=== PATIENT | female | born 1940 | race Caucasian/White ===

== ENCOUNTER 2022-02-25 13:16 | Outpatient (CLI) | payer MEDICARE, SELFPAY ==
--- NOTE | 2022-02-25 13:40 | CRLHL7_ITS ---
For Patients: As a result of the Century Cures Act, medical imaging exams and procedure reports are released immediately into your electronic medical record. You may view this report before your referring provider. If you have questions, please contact your health care provider. BILATERAL SCREENING MAMMOGRAM WITH COMPUTER-AIDED DETECTION TECHNIQUE: CC and MLO views were obtained. These mammographic images have been obtained using full-field digital technique. These mammographic images were interpreted with the benefit of computer-aided detection. COMPARISON FILM: 04/21/20, 04/20/19, 03/31/18. FINDINGS: There are scattered areas of fibroglandular density IMPRESSION: There is no radiographic evidence for malignancy. ASSESSMENT: BI-RADS Category 1: Negative RECOMMENDATION: Routine screening mammogram in 1 year. A lay language report of this examination will be provided to the patient. Niranjan Lanza M.D. Diagnostic Radiologist [email or web address] MEDARDO/Dictated by: Niranjan Lanza MD @ 02/26/2022 8:10:00 AM (Electronically Signed)
== END 2022-02-25 13:17 | disposition home or self-care (01) ==
LOC: MAMMO 13:21
PROVIDERS: PCP Family Medicine; Visit Provider Family Medicine
DX: Z12.31 Encounter for screening mammogram for malignant neoplasm of breast (principal)
CPT/HCPCS: 77067

== ENCOUNTER 2022-04-14 08:41 | Outpatient (CLI) | payer MEDICARE, SELFPAY ==
[2022-04-14 14:49] LABS: Chloride* 96 mmol/L (96-114); Potassium* 4.1 mmol/L (3.6-5.1); Sodium* 136 mmol/L (135-149)
[2022-04-14 14:52] LABS: Blood Urea Nitrogen* 12 mg/dL (7-30); Carbon Dioxide* 32 mmol/L (20-32); Cholesterol* 174 mg/dL (90-199); Creatinine* 0.6 mg/dL (0.5-1.5); Estimated Glomerular Filt Rate 91 ml/min; Glucose* 87 mg/dL (60-115); Triglycerides* 159 mg/dL (40-149)
[2022-04-14 14:53] LABS: HDL Cholesterol* 65 mg/dL (>=50); LDL Cholesterol Calculated 77 mg/dL (<100)
[2022-04-14 15:08] LABS: Calcium* 9.1 mg/dL (8.4-10.6)
[2022-04-14 15:39] LABS: Free T4 Free Thyroxine* 0.89 ng/dL (0.70-1.85)
== END 2022-04-14 08:42 | disposition home or self-care (01) ==
PROVIDERS: PCP Family Medicine; Visit Provider Family Medicine
DX: E78.5 Hyperlipidemia, unspecified (principal); I10 Essential (primary) hypertension; Z13.29 Encounter for screening for other suspected endocrine disorder
CPT/HCPCS: 80048; 80061; 84439; 84443

== ENCOUNTER 2023-01-04 11:09 | Outpatient (CLI) | payer MEDICARE, SELFPAY | END 2023-01-04 11:10 | disposition home or self-care (01) | LOC: LONREF 11:10 | PROVIDERS: PCP Family Medicine; Visit Provider Family Medicine | DX: Z01.818 Encounter for other preprocedural examination (principal); I10 Essential (primary) hypertension; E78.00 Pure hypercholesterolemia, unspecified | CPT/HCPCS: 80048 ==

== ENCOUNTER 2023-01-24 07:07 | Day surgery (SDC) | payer MEDICARE, SELFPAY ==
[2023-01-24] VITALS (23 sets, daily range): BP systolic 108–167; BP diastolic 58–103; PULSE 59–96; RESP 12–18; TEMP 35.6–36.6; O2SAT 90–99; BMI 35.7
--- OUTSIDE RECORDS SUMMARY | 2023-01-24 07:09 | XMS_ITS | Continuity of Care Document ---
Author Name Unknown Organization [facility] Address [address] [place] [address] Phone Care Team Providers Care Gum Cook Name Role Phone Joseph Montejo MD Unavailable Unavailable Medications Medication Instructions Dosage Effective Dates (start - stop) Status Comments GABAPENTIN (unknown strength) Not Available - Active HYDROCHLOROTHIAZIDE (unknown strength) Not Available - Active LISINOPRIL (unknown strength) Not Available - Active POTASSIUM CHLORIDE (unknown strength) Not Available - Active PRAVASTATIN SODIUM (unknown strength) Not Available - Active CITALOPRAM HBR (unknown strength) Not Available - Active STANBACK ANALGESIC (unknown strength) Not Available - Active INFANTS IBUPROFEN (unknown strength) Not Available - Active Procedures Procedure Date Postop Followup Visit Remove Intraspinal Lesion, Lumbar Pa Assist Remove Intraspinal Lesion, Lum bar Office/Outpatient Visit,Est, Mod 2012 Office/Outpatient Visit,Est, Mod 2012 Office/Outpatient Visit,New, Mod 2011 X-Ray Exam Of Neck Spine, 4+ Views Advance Directives Directive Yes / No Effective Date File Name No Information Encounters Encounter Description Practice Location Reason(s) For Visit Diagnoses Date Provider Providers Copied on Encounter [facility], [address], [place], [place], [id number], [place] tel:[phone] [facility] No Information 6 Gustabo Ruiz. [facility], [address], [place], [id number] , [place]. tel:[phone] Z [facility], [address], [place], [address], [place] tel:[phone] [facility] No Information 3 Stone Rutherford. [facility], [address], [place], [place], [id number] , [place]. tel: [phone] Referring Provider: Augustus Stahl, [facility] [address], [place], [address]. tel:[phone] Z [facility], [address], [place], [address], [place] tel:[phone] [place] [address] No Information 3 Gustabo Ruiz. [facility], [address] [place] [address] [address], [place], [place], [id number] , [place]. tel: [phone] Referring Provider: Augustus Stahl, [facility] [address], [place], [address]. tel:[phone] Office/Outpat ient Visit,Est, Mod Z [facility], [address], [place], [address], [place] tel:[phone] [facility] Piper LUMBAGO Feb-0 3 Gustabo Ruiz. [facility], [address], [place], [place], [id number] , [place]. tel:[phone] Referring Provider: Augustus Stahl, [facility] [address], [place], [address]. tel:[phone] Office/Outpat ient Visit,Est, Mod Z [facility], [address], [place], [address], [place] tel:[phone] [place] [address] No Information 3 Stone [place]. [facility], [address], [place], [place], [address] , [place]. tel:[phone] Referring Provider: Augustus Stahl, [facility] [address], [place], [address]. tel:[phone] Z [facility], [address], [place], [address], [place] tel:[phone] [facility] No Information 2 Gustabo Ruiz. [facility], [address], [place], [place], [id number] , [place]. [phone] Office/Outpat ient Visit,[facility], [facility] Z [facility], [address], [place], [place], [facility], [place] tel:[phone] [facility] No Information 2 Stone [place]. [facility], [address] [place] [address] [address], [place], [place], [address] , [place]. tel:[phone] Referring Provider: Augustus Stahl, [facility] [address] [place], [address]. tel:[phone] Family History Family Member Type Diagnosis Age At Onset Problem (finding) Family history of Heart disease Problem (finding) Family history of osteo arthritis Problem (finding) Family history of hyper tension Payers Payer name Insurance type Covered green party ID Authoriza tion(s) No Information Social History Type Description Quantity Date Captured Comments Sex Female Smoking Status No Information Chief Complaint And Reason For Visit No Information Reason For Referral Reason For Referral No Information History Of Present Illness Encounter Date Complaint History Of Prese nt Illness No Information Functional Status Date Functional Assessmen t No Information Instructions Date Instruction Additional Infor mation No Information Assessments Type Assessment Date No Information Patient Care Teams Name Effective Dates (start - stop) Status Members No Information
[2023-01-24] MEDS: OXYCODONE (CR) 10 MG TAB.ER.12H PO (07:21)
[2023-01-24] MEDS: CELECOXIB 200 MG CAPSULE PO ×2 (07:21→20:56)
[2023-01-24] MEDS: ACETAMINOPHEN 500 MG TABLET 1000 MG PO ×3 (07:21→19:43)
[2023-01-24] MEDS: LACTATED RINGERS 1000 ML 1,000 ML 100 ML IV (07:25)
[2023-01-24] MEDS: SODIUM CHLORIDE 0.9 % (FLUSH) 10 ML SYRINGE IVF (07:40)
--- NOTE | 2023-01-24 08:02 | W.PM.H&PU ---
History & Physical Update History & Physical Update H&P Reviewed and patient assessed: No changes noted
--- NOTE | 2023-01-24 08:04 | CRLHL7_ITS ---
For Patients: As a result of the Cures Act, medical imaging exams and procedure reports are released immediately into your electronic medical record. You may view this report before your referring provider. If you have questions, please contact your health care provider. INDICATION: Left knee arthroplasty. Follow-up. TECHNIQUE: Two views of the left knee performed portably and postoperatively. COMPARISON: Pre-surgical images November 16, 2022. FINDINGS: New left total knee arthroplasty with patellar resurfacing. The components are adequately aligned and well seated. Air within the soft tissues and joint space related to the surgery. Soft tissue swelling. IMPRESSION: Postsurgical change from a left total knee arthroplasty. The components are adequately aligned and well seated. Dictated by Brock Barone MD @ 01/24/2023 11:35:28 AM (Electronically Signed)
[2023-01-24] MEDS: fentaNYL 100 MCG/2 ML inj IVP (08:09)
[2023-01-24] MEDS: MIDAZOLAM HCL 1 MG/ML inj IVP (08:09)
--- NOTE | 2023-01-24 08:17 | SUR.PREOP ---
TIME?OUT:?0808 PT/RN/MDA?VERIFICATION?OF?SURGICAL?SITE Left Knee,?PROCEDURE Adductor Canal Block,?AND?CONSENT OBTAINED?PRIOR?TO?INVASIVE?PROCEDURE.
[2023-01-24] MEDS: TRANEXAMIC ACID 100 MG/ML INJ 1000 MG IV (09:00)
[2023-01-24] MEDS: CEFAZOLIN 2 GM in 0.9 % SODIUM CHLORIDE Mini-bag 100 ML IVPB ×3 (09:10→22:46)
--- NOTE | 2023-01-24 10:25 | P.ORPRC_ITS ---
Procedure Note Date of procedure: 01/24/23 Procedure: PREOPERATIVE DIAGNOSIS: 1. Left knee osteoarthritis, primary, severe POSTOPERATIVE DIAGNOSIS: 1. Left knee osteoarthritis, primary, severe PROCEDURE: 1. Left total knee arthroplasty SURGEON: Daniele Diaz MD. FINISHED YARN EXAMINER: Izzy Quarles Pa-c - Of note, a skilled assisted living assistant was critical for this case to aid in patient positioning, tissue retraction, limb manipulation/positioning, and closure. ANESTHESIA: Spinal anesthetic EBL: 50ml IMPLANTS: DePuy J&J all cemented TKA - Attune PS femur size 5 narrow, size 4 tibia, 5 poly spacer, 35 mm patella TOURNIQUET: 85 minutes at 300 torr COMPLICATIONS: None evident INDICATIONS: The patient is a pleasant 82-year-old female who has experienced severe left knee pain and difficulty bearing weight. Workup included x-rays which revealed severe osteoarthrosis in the knee. Given the deformity, the dysfunction, and the pain, as well as the failure of nonoperative management, recommendation was made for surgery. FINDINGS: Full-thickness chondral loss broadly throughout the patellofemoral compartment and lateral compartment. Tremendous lateral degenerative meniscus pathology. Moderate effusion upon entering the joint. Valgus knee posture. DESCRIPTION OF PROCEDURE: Following a thorough discussion of risks, benefits, and alternatives consent was obtained and the left knee was marked. The patient was brought to the operating room and placed supine on the operating table. Induction of anesthesia was undertaken. 2 g IV Ancef and 1 g tranexamic acid was administered within 1 hr of incision preoperatively. Proper time-out was performed identifying proper patient, site, procedure. The operative extremity was prepped and draped in the appropriate sterile fashion using ChloraPrep after the patient was positioned supine with all bony prominences well padded. A longitudinal, anterior, midline skin incision was made starting approximately 3cm proximal to the superior pole of the patella and advanced distal to the tibial tubercle. A median parapatellar arthrotomy was created. A medial subperiosteal sleeve was created with knife, massey elevator and curved osteotome. The retropatellar fatpad was resected and the synovium in the suprapatellar pouch excised to visualize the anterior femoral cortex. Femoral preparation was performed via an intramedullary guide. Step drill allowed access into the femoral canal. The distal cutting guide was placed with 5? of valgus and 11 mm cut on the distal femur. Femur was sized using a posterior referencing guide but also trans epicondylar axis and Whitesides line in 5 ? of external rotation. This found have a best fit with the sizing noted above. The 4 in 1 cutting block was then placed, and the distal femur shaped accordingly. The box cut was then created and the trial implant inserted to confirm appropriate fit. We turned our attention to the proximal tibia. Extramedullary guide was utilized for cutting with the goal of being 90 degree cut from the mechanical axis of the tibia in the varus/valgus plane utilizing tibial crest as the primary alignment. Initially a 4 mm resection was performed from the medial tibial plateau. Ultimately, balancing was achieved in both flexion and extension in both varus and valgus. The knee was able to achieve full extension as well comfortably. The patella was initially measured and found have a thickness of 20 mm. It was resected back to approximately 14 mm. It was sized to be a best fit with as noted above. This was drilled, trial placed. All trials were placed and found to have an excellent stability and balance. At this stage, trial implants were removed, the knee was thoroughly irrigated with normal saline, and the cement was mixed. After irrigation, the knee was thoroughly dried, and cement placed, with the real tibial and femoral implants placed along with the patella. Trial poly spacer was placed and confirmed to have excellent range of motion and full extension, and the real poly spacer op ened and inserted. All extra cement was removed, and a 3 min Betadine soak performed. Finally, a final irrigation round with normal saline was performed. Closure performed with 0 PDS and #0 Stratafix for the quad tendon/retinaculum. 2-0 Vicryl/Stratafix for the subcutaneous and 4-0 Monocryl for subcuticular closure. Dressings were applied and the patient was awoken from anesthesia after the tourniquet deflated and transferred the PACU in stable condition. A skilled assisted living assistant was critical for this case to aid in patient positioning, tissue retraction, bone exposure, limb manipulation/positioning, patient safety, and closure. PLAN: 1. Weight bear as tolerated operative extremity. 2. 23 hr perioperative antibiotics. 3. Ice. 4. PT/OT consults for ambulation assistance/mobility education. 5. Social work consult for discharge planning. 6. DVT prophylaxis with at SCDs, Marlo Hose, and aspirin twice daily.
--- NOTE | 2023-01-24 11:01 | P.NB_ITS ---
Nerve Block Nerve Block Time Seen by Provider: 08:12 Date Seen: 01/24/23 Type of block requested by surgeon for post-operative analgesia: adductor canal Side: left Time out performed: Yes Verification of patient name: Yes Verification of date of : Yes Site marking: site marked Name of person performing procedure: Wesley Continuous monitoring Was continuous monitoring of O2 sat, B/P, quality assurance monitor chassis, recorded every 15 minutes?: Yes Procedure Checklist: sterile prep, needles and gloves Ultrasound guided. Images saved: Yes Medications given in 5ml increments after negative aspiration: Ropivicaine %: 0.5 mL: 20 Needle gauge: 20 Decadron (mg): 10 Precedex (mcg): 25 Patient tolerated procedure well: Yes Additional comments: Needle noted adjacent to nerve Block Charges Block Charge (with Pro Fee): Femoral Nerve Use of Ultrasound Machine for Block: Yes- US Guidance/pain block
--- NOTE | 2023-01-24 11:02 | P.NB_ITS ---
Nerve Block Nerve Block Time Seen by Provider: 08:12 Date Seen: 01/24/23 Type of block requested by surgeon for post-operative analgesia: geniculars Side: left Time out performed: Yes Verification of patient name: Yes Verification of date of : Yes Site marking: site marked Name of person performing procedure: Wesley Continuous monitoring Was continuous monitoring of O2 sat, B/P, security monitor, recorded every 15 minutes?: Yes Procedure Checklist: sterile prep, needles and gloves Medications given in 5ml increments after negative aspiration: Ropivicaine %: 0.5 mL: 9 Needle gauge: 25 Patient tolerated procedure well: Yes Block Charges Block Charge (with Pro Fee): Genicular Nerve Block Use of Ultrasound Machine for Block: No
--- NOTE | 2023-01-24 11:02 | W.ANESCHARGE ---
Anesthesia Charges Start Date/Time Anesthesia Start Date: 01/24/23 Anesthesia Start Time: 08:52 Stop Date/Time Anesthesia Stop Date: 01/24/23 Anesthesia Stop Time: 11:00
--- NOTE | 2023-01-24 11:02 | W.ANESCHARGE ---
Anesthesia Charges Start Date/Time Anesthesia Start Date: 01/24/23 Anesthesia Start Time: 08:52 Stop Date/Time Anesthesia Stop Date: 01/24/23 Anesthesia Stop Time: 11:00 Summary Extremes of Age - Over 70 or under 1: MDA
[2023-01-24] MEDS: HYDROmorphone 0.5 mg/0.5 ml inj IVP (12:59)
[2023-01-24] MEDS: LACTATED RINGERS 1000 ML 1,000 ML 75 ML IV (13:03)
--- NOTE | 2023-01-24 15:23 | PM.IMCN1 ---
Date of Consult Patient: [facility] Patient Consult date: 01/24/23 Requesting Physician: Orthopedics Primary Care Provider: Julio Gonzales MD Consult Narrative Reason for consult: Medical management Narrative: Jeri Rojas is a 82 year old female seen following left knee arthroplasty for management of medical problems. Consultation requested by Dr. Diaz. Patient reports at this time she is doing well. She is not having significant pain. No nausea, dyspnea or chills. Preoperatively she reports she was doing well. No recent illness. She is bothered by chronic sinus congestion. She has not had any fever. No cough or dyspnea. Preop physical done 3 weeks ago identified no new problems. She was switch from lisinopril to amlodipine for her hypertension that time. Previous surgeries performed without problems with anesthesia, bleeding or clotting. She did have a left hip arthroplasty with an uncomplicated postoperative course and managed well at home. Review of Systems Narrative: Unremarkable except as noted above PFSH PFS Medical History (Updated 01/24/23 @ 15:32 by Stone Huerta MD) Osteoarthritis of left knee ?M17.12 - Unilateral primary osteoarthritis, left knee (ICD-10) Hypothyroid ?E03.9 - Hypothyroidism, unspecified (ICD-10) Anxiety (03/02/11) ?F41.9 - Anxiety disorder, unspecified (ICD-10) Hypertension ?I10 - Essential (primary) hypertension (ICD-10) Hyperlipidemia ?E78.5 - Hyperlipidemia, unspecified (ICD-10) Surgical History (Updated 01/24/23 @ 15:27 by Stone Huerta MD) History of vein stripping ?Z98.890 - Other specified postprocedural states (ICD-10) Status post tubal ligation (02/11/09) ?Z98.51 - Tubal ligation status (ICD-10) Status post lumbar spine operative procedure for decompression of spinal cord ?Z98.890 - Other specified postprocedural states (ICD-10) Status post left foot surgery (02/11/09) ?Z98.890 - Other specified postprocedural states (ICD-10) Status post cataract extraction ?Z98.49 - Cataract extraction status, unspecified eye (ICD-10) Status post bunionectomy (02/11/09) ?Z98.890 - Other specified postprocedural states (ICD-10) 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 She has 2 steps to get into the house but then lives on 1 level. They have installed hand rails on both sides to get into the house. She does not smoke. She rarely drinks alcohol. What is your current living situation?: I presently have a place to live In the past 12 months, utilities in danger of being shut off: no In the past 12 mos, have been you worried that your food would run out before you had money to buy more?: never true In the past 12 mos, the food you bought just didn't last and you didn't have money to buy more?: never true Smoking Status: Never smoker Do you use any of these nicotine containing products: None How often do you have a drink containing alcohol: never How many standard drinks containing alcohol do you have on a typical day: 1 or 2 How often do you have six or more drinks on one occasion: Never AUDIT-C Alcohol total score: 0 Non-prescribed substance use: denies use Caffeine: Yes How often does anyone, including family, friends and others, physically hurt you: never How often does anyone, including family, friends and others, insult or talk down to you: never How often does anyone, including family, friends and others, threaten you with harm: never How often does anyone, including family, friends and others, scream or curse at you: never Meds Home Medications and Allergies Home Medications Medication Instructions Recorded Confirmed Type multivitamin 1 tab PO HS 04/14/22 01/24/23 History amlodipine 5 mg tablet 5 mg PO HS 01/24/23 01/24/23 History citalopram 20 mg tablet 20 mg PO HS 01/24/23 01/24/23 History mirabegron 25 mg tablet,extended 25 mg PO HS 01/24/23 01/24/23 History release 24 hr (Myrbetriq) pravastatin 40 mg tablet 40 mg PO HS 01/24/23 01/24/23 History Allergies Allergy/AdvReac Type Severity Reaction Status Date / Time lisinopril AdvReac Intermediate lip Verified 01/24/23 07:36 swelling Exam Narrative: Exam Narrative: She is alert and appears in no distress. Mood and affect are bright. Oropharynx with small airway. Neck is supple without mass or adenopathy. Respirations are clear to auscultation. Breathing is unlabored. Cardiovascular: S1, S2, regular rate and rhythm. No murmur gallop or rub. Abdomen: Bowel sounds active. Abdomen is soft without tenderness or mass. Lower extremities with bandage on left knee. Distal to that there is no edema. She has intact strength, pulses and sensation in both ankles and feet. Const: Vital Signs, click to edit/add: Vital Signs - 24 hr 01/24/23 07:41 01/24/23 08:08 01/24/23 08:13 Temperature 97.9 F Pulse Rate 65 67 61 Pulse Rate [Pulse Oximeter] Respiratory Rate 16 16 16 Blood Pressure 152/88 H 167/103 H 136/84 Blood Pressure [Ri ght Arm] Pulse Oximetry 96 99 99 Oxygen Delivery Me thod Room Air Nasal Cannula Nasal Cannula Oxygen Flow Rate 2 2 01/24/23 08:19 01/24/23 10:56 01/24/23 11:00 Temperature 96.8 F L Pulse Rate 59 L 65 64 Pulse Rate [Pulse Oximeter] Respiratory Rate 16 16 16 Blood Pressure 131/81 109/73 116/77 Blood Pressure [Ri ght Arm] Pulse Oximetry 99 97 99 Oxygen Delivery Me thod Nasal Cannula OxyMask OxyMask Oxygen Flow Rate 2 10 10 01/24/23 11:05 01/24/23 11:10 01/24/23 11:15 Temperature 96.8 F L Pulse Rate 60 61 60 Pulse Rate [Pulse Oximeter] Respiratory Rate 16 16 12 Blood Pressure 126/82 129/82 132/82 Blood Pressure [Ri ght Arm] Pulse Oximetry 99 99 97 Oxygen Delivery Me thod OxyMask OxyMask Room Air Oxygen Flow Rate 5 5 01/24/23 11:20 01/24/23 11:25 01/24/23 11:28 Temperature 97 F L Pulse Rate 62 60 65 Pulse Rate [Pulse Oximeter] Respiratory Rate 12 16 16 Blood Pressure 128/81 126/81 136/78 Blood Pressure [Ri ght Arm] Pulse Oximetry 94 94 96 Oxygen Delivery Me thod Room Air Room Air Room Air Oxygen Flow Rate 01/24/23 11:45 01/24/23 12:00 01/24/23 12:15 Temperature 96.0 F L 96.0 F L 96.0 F L Pulse Rate Pulse Rate [Pulse Oximeter] 67 65 66 Respiratory Rate 14 14 14 Blood Pressure Blood Pressure [Ri ght Arm] 137/79 133/61 127/58 L Pulse Oximetry 91 95 Oxygen Delivery Me thod Room Air Nasal Cannula Nasal Cannula Oxygen Flow Rate 1 1 01/24/23 12:29 01/24/23 12:30 01/24/23 13:00 Temperature 96.0 F L 96.3 F L 96.3 F L Pulse Rate 65 Pulse Rate [Pulse Oximeter] 63 69 Respiratory Rate 14 14 14 Blood Pressure Blood Pressure [Ri ght Arm] 136/75 125/78 123/70 Pulse Oximetry 95 90 Oxygen Delivery Me thod Room Air Nasal Cannula Nasal Cannula Oxygen Flow Rate 1 1 01/24/23 14:59 Temperature 96.3 F L Pulse Rate Pulse Rate [Pulse Oximeter] 69 Respiratory Rate 14 Blood Pressure Blood Pressure [Ri ght Arm] 123/70 Pulse Oximetry 90 Oxygen Delivery Me thod Nasal Cannula Oxygen Flow Rate 1 Documenting provider has reviewed patient's vital signs: yes Assessment and Plan Assessment and plan (1) Status post left knee replacement: Status: Acute (2) Hypertension: Problem comment: Hold blood pressure medication tonight. Likely resume on discharge Status: Acute (3) Hypothyroid: Problem comment: Resume home levothyroxine Status: Acute (4) Hyperlipidemia: Problem comment: Resume home pravastatin Status: Acute (5) Anxiety: Problem comment: Resume home citalopram Status: Acute Plan Resume home medications except amlodipine will be held tonight. Monitor for complications of chronic medical problems or of knee surgery. Antibiotics, pain medication, VTE prophylaxis ordered by Dr. Diaz. Therapy to evaluate and treat. Anticipate discharge to home tomorrow. Total time spent today is 35 minutes, 20 minutes in coordination of care and discussing with patient other providers ongoing evaluation management of chronic medical problems following knee surgery
[2023-01-24] MEDS: OXYCODONE 5 MG TABLET PO ×2 (18:43→22:45)
--- NOTE | 2023-01-24 19:23 | PC.NURSE ---
Patient up to floor at 1140. Family at beside. Patient is alert an oriented x4. Lamine SCD's, cryocuff to op site. Lamine teds. IV patent on left wrist, SL because PO adequate. Patient denied N/V/SOB. PRN dilauded and Oxy administered see emar. Up to chair with PT, tolerating SBA to bathroom and voiding independently. Walker/GB used. Patient tolerating a regular diet. Dressing to Left knee C/D/I.
[2023-01-24] MEDS: SENNOSIDES 1 TAB TABLET 2 TAB PO (20:56)
[2023-01-24] MEDS: ASPIRIN 81 MG TABLET EC PO (20:56)
[2023-01-24] MEDS: MELATONIN 3 MG TABLET PO (20:56)
[2023-01-24] MEDS: MULTIVITAMIN/MINERALS 1 TABLET 1 TAB PO (20:56)
[2023-01-24] MEDS: PRAVASTATIN SODIUM 20 MG TABLET 40 MG PO (20:56)
[2023-01-24] MEDS: SODIUM CHLORIDE 0.9 % (FLUSH) 10 ML SYRINGE 5 ML IVF (20:57)
[2023-01-24] MEDS: CITALOPRAM HYDROBROMIDE 20 MG TABLET PO (21:00)
--- NOTE | 2023-01-24 22:16 | PC.NURSE ---
Shift [id number]- Patient up with assist of 1, walker, gait belt and tolerates well. She states satisfaction with pain relief- see eMAR for administrations. Dressing is clean, dry, and intact. Cryocuff in place. She is voiding.
[2023-01-25 00:05] VITALS: BP 96/58; PULSE 89; PULSE 96; RESP 18; TEMP 36.6; O2SAT 92
[2023-01-25] MEDS: OXYCODONE 5 MG TABLET PO ×2 (02:07→08:28)
[2023-01-25] MEDS: ACETAMINOPHEN 500 MG TABLET 1000 MG PO ×2 (02:09→07:44)
[2023-01-25 02:50] VITALS: BP 115/71; PULSE 85; RESP 18; TEMP 36.7; O2SAT 91
[2023-01-25] MEDS: CEFAZOLIN 2 GM in 0.9 % SODIUM CHLORIDE Mini-bag 100 ML IVPB (06:49)
[2023-01-25] MEDS: LEVOTHYROXINE 25 MCG TABLET PO (06:49)
[2023-01-25] MEDS: SODIUM CHLORIDE 0.9 % (FLUSH) 10 ML SYRINGE 5 ML IVF (06:50)
[2023-01-25 06:55] LABS: Hemoglobin* 12.2 gm/dL (12.0-16.0); Immature Granulocytes Abs Auto 0.02 K/uL (0.00-0.30); Immature Granulocytes Pct Auto 0.2 %; Lymphocytes Percent Auto 7.1 % (20-44); Mean Corpuscular HGB Conc 35 gm/dL (32-36); Mean Corpuscular Hemoglobin 33 pg (26-34); Mean Corpuscular Volume 96 fL (80-100); Neutrophils Percent Auto 86.7 % (42.0-72.0); Platelet Count* 203 K/uL (140-440); RDW Coefficient of Variation % 12.2 % (11.5-15.5); Red Blood Count 3.66 m/uL (4.00-5.20); White Blood Count* 10.55 K/uL (4.50-11.00)
[2023-01-25 06:57] LABS: Slide Review Reflex No
[2023-01-25 07:00] VITALS: BP 122/81; PULSE 80; RESP 18; TEMP 36.6; O2SAT 93
--- NOTE | 2023-01-25 07:01 | PC.NURSE ---
Pt is alert and oriented x3. Afebrile. Pt reports 5/10 pain in left knee, pain managed with cryo cuff, and scheduled and PRN medications. Pt?s left knee dressing is CDI. Pt denies chest pain, SOB, and N/V. Pt is tolerating a reg diet, and voiding. Pt is up SBA with walker and gait belt. Pt slept intermittently throughout night.??
[2023-01-25 07:09] LABS: Potassium* 3.6 mmol/L (3.6-5.1); Sodium* 132 mmol/L (135-149)
[2023-01-25 07:12] LABS: Creatinine* 0.5 mg/dL (0.5-1.5); Est. Creatinine Clearance* 35.49; Estimated Glomerular Filt Rate 95 ml/min
[2023-01-25 07:13] LABS: Blood Urea Nitrogen* 14 mg/dL (7-30)
--- NOTE | 2023-01-25 08:21 | PM.ORPN ---
Subjective Subjective Time Seen by Provider: : Date Seen: 01/25/23 Principal diagnosis: Status post left knee replacement Interval history: Jolene is comfortable this morning. Her is in the room with her this morning. She plans on discharging to home today. Ortho Exam Narrative Exam Narrative: Alert and oriented x3. Patient is in no acute distress. Converses without labored breathing. Hearing is grossly intact. Ambulates with a walker. Examination of the left knee shows the dressing is intact. Mild edema. Mild effusion. CMS intact. Able to straight leg raise. Good quad strength 5/5. Bilateral calves are soft and nontender. Const Vital Signs, click to edit/add: Vital Signs - 24 hr 01/24/23 10:56 01/24/23 11:00 01/24/23 11:05 Temperature 96.8 F L Pulse Rate 65 64 60 Pulse Rate [Pulse Oximeter] Respiratory Rate 16 16 16 Blood Pressure 109/73 116/77 126/82 Blood Pressure [Right Arm] Pulse Oximetry 97 99 99 Oxygen Delivery Method OxyMask OxyMask OxyMask Oxygen Flow Rate 10 10 5 01/24/23 11:10 01/24/23 11:15 01/24/23 11:20 Temperature 96.8 F L Pulse Rate 61 60 62 Pulse Rate [Pulse Oximeter] Respiratory Rate 16 12 12 Blood Pressure 129/82 132/82 128/81 Blood Pressure [Right Arm] Pulse Oximetry 99 97 94 Oxygen Delivery Method OxyMask Room Air Room Air Oxygen Flow Rate 5 01/24/23 11:25 01/24/23 11:28 01/24/23 11:45 Temperature 97 F L 96.0 F L Pulse Rate 60 65 Pulse Rate [Pulse Oximeter] 67 Respiratory Rate 16 16 14 Blood Pressure 126/81 136/78 Blood Pressure [Right Arm] 137/79 Pulse Oximetry 94 96 Oxygen Delivery Method Room Air Room Air Room Air Oxygen Flow Rate 01/24/23 12:00 01/24/23 12:15 01/24/23 12:29 Temperature 96.0 F L 96.0 F L 96.0 F L Pulse Rate 65 Pulse Rate [Pulse Oximeter] 65 66 Respiratory Rate 14 14 14 Blood Pressure Blood Pressure [Right Arm] 133/61 127/58 L 136/75 Pulse Oximetry 91 95 Oxygen Delivery Method Nasal Cannula Nasal Cannula Room Air Oxygen Flow Rate 1 1 01/24/23 12:30 01/24/23 13:00 01/24/23 13:30 Temperature 96.3 F L 96.3 F L 96.3 F L Pulse Rate Pulse Rate [Pulse Oximeter] 63 69 70 Respiratory Rate 14 14 14 Blood Pressure Blood Pressure [Right Arm] 125/78 123/70 108/85 Pulse Oximetry 95 90 90 Oxygen Delivery Method Nasal Cannula Nasal Cannula Room Air Oxygen Flow Rate 1 1 01/24/23 14:00 01/24/23 15:00 01/24/23 15:00 Temperature 96.3 F L 96.3 F L Pulse Rate Pulse Rate [Pulse Oximeter] 75 84 Respiratory Rate 14 14 Blood Pressure Blood Pressure [Right Arm] 112/71 112/68 Pulse Oximetry 91 92 92 Oxygen Delivery Method Room Air Room Air Oxygen Flow Rate 01/24/23 16:00 01/24/23 19:45 01/25/23 00:05 Temperature 96.7 F L 97.5 F L Pulse Rate Pulse Rate [Pulse Oximeter] 80 96 Respiratory Rate 14 18 Blood Pressure Blood Pressure [Right Arm] 117/72 135/86 Pulse Oximetry 92 90 92 Oxygen Delivery Method Room Air Room Air Oxygen Flow Rate 01/25/23 00:05 01/25/23 00:05 01/25/23 02:50 Temperature 97.8 F 98.0 F Pulse Rate Pulse Rate [Pulse Oximeter] 96 89 85 Respiratory Rate 18 18 18 Blood Pressure Blood Pressure [Right Arm] 96/58 L 115/71 Pulse Oximetry 92 91 Oxygen Delivery Method Room Air Room Air Oxygen Flow Rate Assessment and Plan Assessment and plan (1) Status post left knee replacement: Problem details: 01/24/2023 Status: Acute Assessment and Plan: Plan for discharge is today to home if they meet discharge criteria. DVT prophylaxis includes aspirin 81 mg twice daily x1 month, Marlo stockings x1 month may remove for 1 hr per day, frequent ambulation Remove dressing in 1 week. Observe wound and phone Orthopedics with any questions or concerns Return to clinic in 1 week for a wound check Return to clinic in 6 weeks with surgeon Minimize narcotic use. Wean off and discontinue soon as possible. Activities as tolerated. No strenuous activity. Outpatient physical therapy as scheduled. Ice and elevate the operative extremity. No restriction on ice. (2) Hypertension: Problem details: Hold blood pressure medication tonight. Likely resume on discharge Status: Acute (3) Hypothyroid: Problem details: Resume home levothyroxine Status: Acute (4) Hyperlipidemia: Problem details: Resume home pravastatin Status: Acute (5) Anxiety: Problem details: Resume home citalopram Status: Acute
[2023-01-25] MEDS: CELECOXIB 200 MG CAPSULE PO (08:25)
[2023-01-25] MEDS: ASPIRIN 81 MG TABLET EC PO (08:25)
[2023-01-25] MEDS: SENNOSIDES 1 TAB TABLET 2 TAB PO (08:26)
--- NOTE | 2023-01-25 10:52 | PC.NURSE ---
Discharge: Patient alert and oriented x4. Dressing to left knee C/D/I. Cryocuff to op site. Denies pain, N/V/SOB. PRN oxy administered x1 prior to PT/OT. D/C to home accompanied by spouse at 1025. Belongings sheet signed. Discharge instructions given and signed and patient verbalized understanding.
== END 2023-01-25 10:25 | disposition home or self-care (01) ==
LOC: OR 07:08 → MEDSURG 07:10
PROVIDERS: PCP Family Medicine; Visit Provider Orthopaedic Surgery Sports Medicine
PROC: (CPT 27447; principal; 2023-01-24 09:00)
DX: M17.12 Unilateral primary osteoarthritis, left knee (principal); G89.18 Other acute postprocedural pain; I10 Essential (primary) hypertension; E03.9 Hypothyroidism, unspecified; E78.5 Hyperlipidemia, unspecified; F41.9 Anxiety disorder, unspecified
CPT/HCPCS: 27447; 01402; 36415; 64447; 64454; 73560; 76942; 82565; 84132; 84295; 84520; 85025; 97110; 97116; 97161; 97165; 97530; 99100; A9153; A9270; C1776; J0690; J1100; J1170; J2250; J2405; J2704; J2795; J3010; J7120

== ENCOUNTER 2023-03-15 13:00 | Outpatient (RCR) | payer MEDICARE, SELFPAY ==
--- NOTE | 2023-01-06 15:47 | PT.OPEX ---
PT [facility] Outpatient Eval PT [facility] Outpatient Eval Start: 01/06/23 11:47 Freq: Status: Active Protocol: Document 01/06/23 13:08 SHAILESH (Rec: 01/06/23 14:01 SHAILESH [id number]) E-signed By Gilda Cowart DPT Physical Therapy Outpatient Evaluation Insurance Information Recert Due Date 04/06/23 Insurance Name Medicare B,[employer] Medical Diagnosis L knee OA L TKA 01/24/23 Treating Diagnosis L knee pain, impaired L knee ROM, impaired L knee/LE mobility/strength, limping/ antalgic gait, limited tolerance for extended standing/walking, interrupted sleep Subjective Subjective Patient with chronic L knee pain leading up to L TKA scheduled for 01/24/23. She reports noticing some weakness in L knee/LE as well. Increased pain with transitional movements, extended standing/walking. Sleep is interrupted at times. She reports hx of L CHRIS about 4-5 years ago. She still has FWW and cane from her hip surgery. States they have higher toilet seat. 2 stairs with grab bar to enter through the garage. Once inside she can stay on the main level. Spouse is available to assist as needed after surgery. Date of Last Physician Visit 11/17/22 Date of Surgery (If applicable) 01/24/23 Current Work Status Retired Assessment Assessment/Impression Patient is an 82 year old female with L knee pain, impaired L knee ROM, impaired L knee/LE mobility/strength, limping/antalgic gait, limited tolerance for extended standing/walking, interrupted sleep. Patient seen in PT today for pre-op session to provide education/information on upcoming TKA surgery, safety information/HO, equipment instruction including use of FWW, and instruction in TKA exercises. Handouts issued for exercises , patient to perform them leading up to surgery. Reviewed PT/OT plan during hospital stay and patient is scheduled for OP PT post op. Patient reports having a cane and FWW to use after surgery. She has not been needing an AD for amb leading up to surgery. 2 stairs to enter her home, once inside she can stay on the main level. Tub shower in the bathroom. Reports having a high toilet in the bathroom. Recommended she consider a tub/shower chair and commode for armrest over the toilet. She will look into these options. Patient would benefit from skilled PT for pain/sx management, improved knee ROM, improved knee/LE mobility/ strength, improved gait, balance/proprioception training, and establishment of HEP. Plan of Care Rehabilitation Potential Good Physical Therapy Goals 1. Patient will be educated in TKA pre/post-op safety, mobility, and exercises with HOs provided within one visit with patient returning to PT for post op treatment after L TKA surgery on 01/24/23. PT goals will be updated to TKA rehab goals when patient returns post op. Coordination/Communication With Referral Source Treatment Plan/Direct Interventions Gait Training,Manual Therapy, Therapeutic Exercises Frequency/Duration 2x/week post op Patient Will Be Discharged From Therapy Completion of LTG(s),Skills Plateau,Independent w/HEP, Independently Progressing Evaluation Billing Untimed Code Treatment Minutes 42 Complexity Moderate Certification Information Initial Certification Date 01/06/23 Ending Certification Date 04/06/23 Provider Signature Shows Agreement With POC & Medical Necessity Physician Signature & Date Requested Please Sign/Date Here Physician Comment/Change : Physician NPI Number #
== END 2023-06-20 15:39 | disposition home or self-care (01) ==
PROVIDERS: PCP Family Medicine; Visit Provider Orthopaedic Surgery Sports Medicine
DX: M17.12 Unilateral primary osteoarthritis, left knee (principal); Z96.652 Presence of left artificial knee joint; Z51.89 Encounter for other specified aftercare
CPT/HCPCS: 97110; 97162; 97164

== ENCOUNTER 2023-04-15 11:25 | Outpatient (CLI) | payer MEDICARE, SELFPAY ==
--- OUTSIDE RECORDS SUMMARY | 2023-04-15 11:29 | XMS_ITS | Continuity of Care Document ---
Author Name Unknown Organization [facility] Address [address] [place] [address] Phone Care Team Providers Care Guillotine Trimmer Name Role Phone Joseph Montejo MD Unavailable Unavailable Medications Medication Instructions Dosage Effective Dates (start - stop) Status Comments INFANTS IBUPROFEN (unknown strength) Not Available - Active STANBACK ANALGESIC (unknown strength) Not Available - Active CITALOPRAM HBR (unknown strength) Not Available - Active PRAVASTATIN SODIUM (unknown strength) Not Available - Active POTASSIUM CHLORIDE (unknown strength) Not Available - Active LISINOPRIL (unknown strength) Not Available - Active HYDROCHLOROTHIAZIDE (unknown strength) Not Available - Active GABAPENTIN (unknown strength) Not Available - Active Procedures [...] Copied on Encounter [facility], [address], [place], [place], [id number], [place] tel:[phone] [facility] No Information 6 Gustabo Ruiz. [facility], [address], [place], [id number] , [place]. tel:[phone] Z [facility], [address], [place], [address], [place] tel:[phone] [facility] No Information 3 Stone Rutherford. [facility], [address], [place], [place], [id number] , [place]. tel: [phone] Referring Provider: Augustus Stahl, [facility] [address], [place], [address]. tel:[phone] Z [facility], [address], [place], [address], [place] tel:[phone] [place] [address] No Information 3 Gustabo Ruiz. [facility], [address] [place] [address] [address], [place], [place], [id number] , [place]. tel: [phone] Referring Provider: Augustus Stahl, [facility] [address], [place], [address]. tel:[phone] Office/Outpat ient Visit,Est, Mod Z [facility], [address], [place], [address], [place] tel:[phone] [facility] Piper LUMBAGO Feb-0 3 Gustabo Ruiz. [facility], [address], [place], [place], [id number] , [place]. tel:[phone] Referring Provider: Augustus Stahl, [facility] [address], [place], [address]. tel:[phone] Office/Outpat ient Visit,Est, Mod Z [facility], [address], [place], [address], [place] tel:[phone] [place] [address] No Information 3 Stone Rutherford. [facility], [address], [place], [place], [id number] , [place]. tel:[phone] Referring Provider: Augustus Stahl, [facility] [address], [place], [address]. tel:[phone] Z [facility], [address], [place], [address], [place] tel:[phone] [facility] No Information 2 Gustabo Ruiz. [facility], [address], [place], [place], [id number] , [place]. [phone] Office/Outpat ient Visit,[facility], [address], [place], [place], [facility], [place] tel:[phone] [facility] No Information 2 Stone Rutherford. [facility], [address] [place] [address] [address], [place], [place], [id number] , [place]. tel: [phone] Referring Provider: Augustus Stahl, [facility] [address] [place], [address]. tel:[phone] Family History Family Member Type Diagnosis Age [...]
== END 2023-04-15 11:26 | disposition home or self-care (01) ==
PROVIDERS: PCP Family Medicine; Visit Provider Family Medicine
DX: Z00.00 Encounter for general adult medical examination without abnormal findings (principal); E03.9 Hypothyroidism, unspecified; E78.5 Hyperlipidemia, unspecified; I10 Essential (primary) hypertension
CPT/HCPCS: 80061; 84443

== ENCOUNTER 2023-10-20 10:44 | Outpatient (CLI) | payer MEDICARE, SELFPAY ==
--- OUTSIDE RECORDS SUMMARY | 2023-10-20 10:46 | XMS_ITS | Encounter Summary ---
Author Name Unknown Organization [facility] Address [address] [place] [address] Care Team Providers Care Collar Packer Name Role Phone Unavailable Primary Care Provider Unavailabl e Prior Encounters Date Type Department Care Team Description 06/08/2021 12:00 PM MST Office Visit [facility] [address], [facility] [address] [place] [address] Keith Guevara, DDS Plan of Treatment Not on file Procedures Procedure Name Priority Date/Time Associated Diagnosis Comments ADDITIONAL X-RAY Routine 06/08/2021 12:0 0 PM MST SINGLE X-RAY Routine 06/08/2021 12:00 PM MST LIMITED ORAL EVALUATION - PROBLEM FOCUSED Routine 06/08/2021 12:00 PM MST 7 ROOT CANAL Routine 06/08/2021 12:00 AM MST Visit Diagnoses Not on file
--- OUTSIDE RECORDS SUMMARY | 2023-10-20 10:46 | XMS_ITS | Continuity of Care Document ---
Author Name Unknown Organization [facility] Address [address] [place] [address] Phone Care Team Providers Care Internet Marketing Consultant Name Role Phone Joseph Montejo MD Unavailable [...] Copied on Encounter [facility], [address], [place], [place], [id number], [place] tel:[phone] [facility] No Information 6 Gustabo Ruiz. [facility], [address], [place], [id number] , [place]. tel:[phone] Z [facility], [address], [place], [address], [place] tel:[phone] [facility] No Information 3 Stone Rutherford. [facility], [address], [place], [place], [id number] , [place]. tel: [phone] Referring Provider: Augustus Stahl, [facility] [address], [place], [address]. tel:[phone] Z [facility], [address], [place], [address], [place] tel:[phone] [place] [address] No Information 3 Gustabo Ruiz. [facility], [address] [place] [address] [address], [place], [place], [id number] , [place]. tel: [phone] Referring Provider: Augustus Stahl, [facility] [address], [place], [address]. tel:[phone] Office/Outpat ient Visit,Est, Mod Z [facility], [address], [place], [address], [place] tel:[phone] [facility] Piper LUMBAGO Feb-0 3 Gustabo Ruiz. [facility], [address], [place], [place], [id number] , [place]. tel:[phone] Referring Provider: Augustus Stahl, [facility] [address], [place], [address]. tel:[phone] Office/Outpat ient Visit,Est, Mod Z [facility], [address], [place], [address], [place] tel:[phone] [place] [address] No Information 3 Stone Rutherford. [facility], [address], [place], [place], [address] , [place]. tel:[phone] Referring Provider: Augustus Stahl, [facility] [address], [place], [address]. tel:[phone] Z [facility], [address], [place], [address], [place] tel:[phone] [facility] No Information 2 Gustabo Ruiz. [facility], [address], [place], [place], [address] , [place]. [phone] Office/Outpat ient Visit,[facility], [facility] Z [facility], [address], [place], [place], [facility], [place] tel:[phone] [facility] No Information 2 Stone Rutherford. [facility], [address] [place] [address] [address], [place], [place], [id number] , [place]. tel:[phone] Referring Provider: Augustus Stahl, [facility] [address] [place], [address]. tel:[phone] Family History Family Member Type Diagnosis Age At Onset Problem (finding) Family history of Heart disease Problem (finding) Family history of osteo arthritis Problem (finding) Family history of hyper tension Payers Payer name Insurance type Covered libertarian ID Authoriza tion(s) No Information Social History [...]
--- OUTSIDE RECORDS SUMMARY | 2023-10-20 10:46 | XMS_ITS | Referral Summary ---
Author Name Unknown [facility] Address [address] [place] [address] Care Team Providers Care Hand Sewer Shoes Name Role Phone Unavailable Primary Care Provider Unavailabl e Allergies No known active allergies Medications Medication Sig Dispensed Refills Start Date End Date Status acetaminophen (TYLENOL) 500 mg tablet Active aspirin 325 mg tablet Act fiona chlorthalidone (HYGROTON) 25 mg tablet Take 25 mg by mouth. Active citalopram (CeleXA) 20 mg tablet Take 20 mg by mouth. Active gabapentin (NEURONTIN) 300 mg capsule Take 300 mg by mouth. Active gabapentin 300 mg tablet extended release 24 hr Active lisinopriL (PRINIVIL,ZESTRIL) 20 mg tablet Take 20 mg by mouth. Active magnesium oxide (MAG-OX) 400 mg (241.3 mg magnesium) tablet Acti ve mirabegron (Myrbetriq) 25 mg tablet extended release 24 hr Active potassium chloride (MICRO-K) 10 mEq CR capsule Take 10 mEq by mouth. Active pravastatin (PravachoL) 40 mg tablet Active Vitamin-B complex split tablet Active naproxen sodium (ANAPROX) 110 MG tablet A ctive Active Problems Problem Noted Date Diagnosed Date Arthritis 06/08/2021 Social History Tobacco Use Types Packs/Day Years Used Date Smoking Tobacco: Former Cigarettes 0 02/18/1959 - 05/20/1968 Smokeless Tobacco: Never Alcohol Use Standard Drinks/Week Comments Yes 0 (1 standard drink = 0.6 oz pur e alcohol) Rarely Sex and Gender Information Value Date Recorded Sex Assigned at Not on file Gender Identity Not on file Sexual Orientation Not on file Plan of Treatment Not on file
--- OUTSIDE RECORDS SUMMARY | 2023-10-20 10:46 | XMS_ITS ---
Author Name Unknown Organization [facility] Address [address] [place] [address] Care Team Providers Care Button Broacher Name Role Phone Unavailable Unavailable Unavailable Surgery Details Not on file Complications Check Surgery Details section. Procedure Estimated Blood Loss Check Surgery Details section. Procedure Findings Check Surgery Details section. Procedure Specimens Taken Check Surgery Details section.
--- OUTSIDE RECORDS SUMMARY | 2023-10-20 10:46 | XMS_ITS | CCD ---
Author Name Unknown Organization [facility] Address [address] [facility] [place] [address] Care Team Providers Care Derrick Boat Leverman Name Role Phone Unavailable Primary Care Provider [...] Smokeless Tobacco: Never Alcohol Use Standard Drinks/Week Yes 0 (1 standard drink = 0.6 oz pure alcohol) Sex and Gender Information Value Date Recorded Sex Assigned at Not on file Gender Identity Not on file Sexual Orientation Not on file Plan of Treatment Not on file
--- OUTSIDE RECORDS SUMMARY | 2023-10-20 10:46 | XMS_ITS | Clinical Summary ---
Author Name Unknown Organization [facility] Address [place], [place] [address] Care Team Providers Care Medical Transcription Supervisor Name Role Phone Julio Gonzales MD Primary Care Provider [phone] Allergies No known active allergies Medications Medication Sig Dispensed Refills Start Date End Date Status CALCIUM CARBONATE-VITAMIN D3 ORAL Take by mouth. Active chlorthalidone (HYGROTON) 25 mg tablet Take 25 mg by mouth once daily. Active citalopram (CELEXA) 20 mg tablet Take 20 mg by mouth once daily. Active CALCIUM-CRANBERRY FRUIT ORAL Take by mouth. Active gabapentin (NEURONTIN) 300 mg capsule Take 300 mg by mouth 2 times daily. Pt currently takes one tablet daily Active lisinopril (PRINIVIL; ZESTRIL) 20 mg tablet Take 20 mg by mouth once daily. Active FA/MV,CA,IRON,MIN/L YCOPENE/LUT (MULTIVITAL ORAL) Take by mouth. Act fiona potassium chloride (MICRO-K) 10 mEq CR capsule Take 10 mEq by mouth once daily with a meal. Active oxyCODONE (ROXICODONE) 5 mg immediate release tablet Take 1-2 tablets by mouth every 4 hours if needed for Pain. 120 tablet 0 03/13/2013 Active Social History Tobacco Use Types Packs/Day Years Used Date Smoking Tobacco: Former Cigarettes 0 06/06/1958 - 06/06/1967 Smokeless Tobacco: Never Alcohol Use Standard Drinks/Week Comments Yes 0 (1 standard drink = 0.6 oz pur e alcohol) very rare Sex and Gender Information Value Date Recorded Sex Assigned at Not on file Gender Identity Not on file Sexual Orientation Not on file Obstetrics History Last Filed Vital Signs Vital Sign Reading Time Taken Comments Blood Pressure 121/68 03/13/2013 10:15 AM CDT Pulse 62 03/13/2013 10:15 AM CDT Temperature 36.6 ??C (97.8 ??F) 03/13/2013 8:30 AM CD T Respiratory Rate 16 03/13/2013 10:15 AM CDT Oxygen Saturation 94% 03/13/2013 10:15 AM CDT Inhaled Oxygen Concentration - - Weight 83 kg (182 lb 15.7 oz) 03/13/2013 7:00 AM CDT Height 155 cm (5' 1.02) 02/15/2013 12:00 AM CDT Body Mass Index 34.55 02/15/2013 12:00 AM CDT Plan of Treatment Health Maintenance Due Date Last Done Comments Tdap 1953 Depression screening for age 12+ 1954 BMI (ht and wt on same day) for age 18+ 1960 Tetanus booster 1962 Zoster (shingles) series for age 50+ (1 of 2) 09/09/18 93 DEXA/DXA scan for age 65+ 09/10/2007 Pneumococcal series for age 65+ (1 of 1 - PCV) 008 COVID-19 vaccine series ( - 2022-24 season) 3 Influenza for age 65+ 02/05/2024 Advance Directives * Full Code (Latest Code Status on File) Date Activated Date Inactivated Comments 03/13/2013 6:45 AM 03/13/2013 7:55 PM Care Teams Medical Transcription Supervisor Relationship Specialty Start Date End Date Julio Gonzales MD PCP - General Family Practice 03/09/13
--- OUTSIDE RECORDS SUMMARY | 2023-10-20 10:46 | XMS_ITS | Clinical Summary ---
Author Name Unknown Organization [facility] Address [address] [place] [address] Care Team Providers Care Basin Tender Name Role Phone Unavailable Primary Care Provider [...] Orientation Not on file Plan of Treatment Health Maintenance Due Date Last Done Comments Dental Oral Exam 1942 Dental Prophylaxis 1942 Dental X-Ray: Bitewings 1942 Dental X-Ray: Full Mouth 1942 Dental X-Ray: Panoramic 1942
== END 2023-10-20 10:45 | disposition home or self-care (01) ==
LOC: CT 10:44
PROVIDERS: PCP Family Medicine; Visit Provider Orthopaedic Surgery Sports Medicine
DX: M19.012 Primary osteoarthritis, left shoulder (principal)
CPT/HCPCS: 73200

== ENCOUNTER 2023-11-02 11:02 | Outpatient (CLI) | payer MEDICARE, SELFPAY ==
--- OUTSIDE RECORDS SUMMARY | 2023-11-02 11:06 | XMS_ITS | Encounter Summary ---
Author Organization [facility] Address [address] [place] [address] Care Team Providers Care Mining Consultant Name Role Phone Unavailable Primary Care Provider Unavailabl e Prior Encounters Date Type Department Care Team Description 06/08/2021 12:00 PM MST Office Visit [facility] [address], [facility] [address] [place] [id number] Keith Guevara, DDS Plan of Treatment Not on file Procedures Procedure Name Priority Date/Time Associated Diagnosis Comments ADDITIONAL X-RAY Routine 06/08/2021 12:0 0 PM MST SINGLE X-RAY Routine 06/08/2021 12:00 PM MST LIMITED ORAL EVALUATION - PROBLEM FOCUSED Routine 06/08/2021 12:00 PM MST 7 ROOT CANAL Routine 06/08/2021 12:00 AM MST Visit Diagnoses Not on file
--- OUTSIDE RECORDS SUMMARY | 2023-11-02 11:06 | XMS_ITS | Clinical Summary ---
Author Organization [facility] Address [address] [place] [address] Care Team Providers Care Hotel Assistant Manager Name Role Phone Unavailable Primary Care Provider [...]
--- OUTSIDE RECORDS SUMMARY | 2023-11-02 11:06 | XMS_ITS ---
Author Organization [facility] Address [address] [place] [address] Care Team Providers Care Medical Services Assistant Name Role Phone Unavailable Unavailable Unavailable Surgery Details Not on file Complications Check Surgery Details section. Procedure Estimated Blood Loss Check Surgery Details section. Procedure Findings Check Surgery Details section. Procedure Specimens Taken Check Surgery Details section.
--- OUTSIDE RECORDS SUMMARY | 2023-11-02 11:06 | XMS_ITS | Continuity of Care Document ---
Author Organization [facility] Address [address] [place] [address] Phone Care Team Providers Care Insurance Compliance Analyst Name Role Phone Joseph Montejo MD Unavailable [...] Copied on Encounter [facility], [address], [place], [place], [id number], [place] tel:[phone] [facility] No Information 6 Gustabo Ruiz. [facility], [address], [place], [id number] , [place]. tel:[phone] Z [facility], [address], [place], [address], [place] tel:[phone] [address] [place] [address] No Information 3 Stone Rutherford. [facility], [address], [place], [place], [id number] , [place]. tel:[phone] Referring Provider: Augustus Stahl, [facility] [address], [place], [address]. tel:[phone] Z [facility], [address], [place], [address], [place] tel:[phone] [address] [place] [address] No Information 3 Gustabo Ruiz. [facility] [place], [address] [place] [address] [address], [place], [place], [id number] , [place]. tel:[phone] Referring Provider: Augustus Stahl, [facility] [address], [place], [address]. tel:[phone] Office/Outpat ient Visit,Est, Mod Z [facility], [address], [place], [address], [place] tel:[phone] [facility] Piper LUMBAGO Feb-0 3 Gustabo Ruiz. [facility], [address], [place], [place], [id number] , [place]. tel:[phone] Referring Provider: Augustus Stahl, [facility] [address], [place], [address]. tel:[phone] Office/Outpat ient Visit,Est, Mod Z [facility], [address], [place], [address], [place] tel:[phone] [place] [address] No Information 3 Stone Rutherford. [facility], [address], [place], [place], [id number] , [place]. tel:[phone] Referring Provider: Augustus Stahl, [facility] [address], [place], [address]. tel:[phone] Z [facility], [address], [place], [address], [place] tel:[phone] [facility] No Information 2 Gustabo Ruiz. [facility], [address], [place], [place], [id number] , [place]. tel:[phone] Office/Outpat ient Visit,[facility], [facility], [address], [place], [address], [place] tel:[phone] [facility] No Information 2 Stone Reyesn. [facility], [address], [place], [place], [id number] , [place]. tel:[phone] Referring Provider: Augustus Stahl, [facility] [address] , [place], [address]. tel:[phone] Family History Family Member Type Diagnosis Age At Onset Problem (finding) Family history of Heart disease Problem (finding) Family history of osteo arthritis Problem (finding) Family history of hyper tension Payers Payer name Insurance type Covered republican ID Authoriza tion(s) No Information Social History [...]
--- OUTSIDE RECORDS SUMMARY | 2023-11-02 11:06 | XMS_ITS | CCD ---
Author Organization [facility] Address [address] [facility] [place] [address] Care Team Providers Care Emergency Medical Services Coordinator Name Role Phone Unavailable Primary Care Provider [...]
--- OUTSIDE RECORDS SUMMARY | 2023-11-02 11:06 | XMS_ITS | Referral Summary ---
Author Organization [facility] Address [address] [place] [address] Care Team Providers Care Assistant To The Vice President Name Role Phone Unavailable Primary Care Provider [...]
--- OUTSIDE RECORDS SUMMARY | 2023-11-02 11:06 | XMS_ITS | Clinical Summary ---
Author Organization [facility] Address [place], [place] [address] Care Team Providers Care Finisher Map And Chart Name Role Phone Julio Gonzales MD Primary Care Provider [phone] Allergies No known active allergies Medications Medication [...] PCV) 008 COVID-19 vaccine series ( - 2022- season) 3 Influenza for age 65+ 02/05/2024 Advance Directives * Full Code (Latest Code Status on File) Date Activated Date Inactivated Comments 03/13/2013 6:45 AM 03/13/2013 7:55 PM Care Teams Finisher Map And Chart Relationship Specialty Start Date End Date Julio Gonzales MD PCP - General Family Practice 03/09/13
== END 2023-11-02 11:03 | disposition home or self-care (01) ==
PROVIDERS: PCP Family Medicine; Visit Provider Family Medicine
DX: Z01.818 Encounter for other preprocedural examination (principal); M19.012 Primary osteoarthritis, left shoulder; E03.9 Hypothyroidism, unspecified
CPT/HCPCS: 80048; 84443

== ENCOUNTER 2023-11-16 08:55 | Day surgery (SDC) | payer MEDICARE, SELFPAY ==
[2023-11-16] VITALS (23 sets, daily range): BP systolic 100–158; BP diastolic 68–95; PULSE 60–98; RESP 12–16; TEMP 36.3–36.7; O2SAT 90–99; BMI 36.7
[2023-11-16] MEDS: ACETAMINOPHEN 500 MG TABLET 1000 MG PO ×2 (08:49→19:03)
[2023-11-16] MEDS: OXYCODONE (CR) 10 MG TAB.ER.12H PO (08:49)
[2023-11-16] MEDS: LACTATED RINGERS 1000 ML 1,000 ML 100 ML IV ×2 (08:50→11:37)
--- OUTSIDE RECORDS SUMMARY | 2023-11-16 08:58 | XMS_ITS | Clinical Summary ---
Author Organization [facility] Address [address] [place] [address] Care Team Providers Care Wagon Driller Name Role Phone Unavailable Primary Care Provider [...]
--- OUTSIDE RECORDS SUMMARY | 2023-11-16 08:58 | XMS_ITS | Continuity of Care Document ---
Author Organization [facility] Address [address] [place] [address] Phone Care Team Providers Care Watch Repair Technician Name Role Phone Joseph Montejo MD Unavailable [...] Copied on Encounter [facility], [address], [place], [place], [id number], [place] tel:[phone] [facility] No Information 6 Gustabo Ruiz. [facility], [address], [place], [id number] , [place]. tel:[phone] Z [facility], [address], [place], [address], [place] tel:[phone] [address] [place] [address] No Information 3 Stone Rutherford. [facility], [address], [place], [place], [id number] , [place]. tel:[phone] Referring Provider: Augustus Stahl, [facility] [address], [place], [address]. tel:[phone] Z [facility], [address], [place], [address], [place] tel:[phone] [place] [address] No Information 3 Gustabo Ruiz. [facility], [address] [place] [address] [address], [place], [place], [id number] , [place]. tel:[phone] Referring Provider: Augustus Stahl, [facility] [address], [place], [address]. tel:[phone] Office/Outpat ient Visit,Est, Mod Z [facility], [address], [place], [address], [place] tel:[phone] [facility] Piper LUMBAGO Feb-0 3 Gustabo uRiz. [facility], [address], [place], [place], [id number] , [place]. tel:[phone] Referring Provider: Augustus Stahl, [facility] [address], [place], [address]. tel:[phone] Office/Outpat ient Visit,Est, Mod Z [facility], [address], [place], [address], [place] tel:[phone] [place] [address] No Information 3 Stone Rutherford. [facility], [address], [place], [place], [id number] , [place]. tel:[phone] Referring Provider: Augustus Stahl, [facility] [address], [place], [address]. tel:[phone] Z [facility], [address], [place], [address], [place] tel:[phone] [facility] No Information 2 Gustabo Ruiz. [facility], [address], [place], [place], [id number] , [place]. tel:[phone] Office/Outpat ient Visit,[facility], [facility] Z [facility], [address], [place], [address], [place] tel:[phone] [facility] No Information 2 Stone Reyesn. [facility], [address], [place], [place], [id number] , [place]. tel:[phone] Referring Provider: Augustus Stahl, [facility] [address] , [place], [address]. tel:[phone] Family History Family Member Type Diagnosis Age [...]
--- OUTSIDE RECORDS SUMMARY | 2023-11-16 08:58 | XMS_ITS ---
Author Organization [facility] Address [address] [place] [address] Care Team Providers Care Junior Buyer Name Role Phone Unavailable Unavailable Unavailable Surgery Details Not on file Complications Check Surgery Details section. Procedure Estimated Blood Loss Check Surgery Details section. Procedure Findings Check Surgery Details section. Procedure Specimens Taken Check Surgery Details section.
--- OUTSIDE RECORDS SUMMARY | 2023-11-16 08:58 | XMS_ITS | Referral Summary ---
Author Organization [facility] Address [address] [place] [address] Care Team Providers Care Syrup Maker Cook Name Role Phone Unavailable Primary Care Provider [...]
--- OUTSIDE RECORDS SUMMARY | 2023-11-16 08:58 | XMS_ITS | CCD ---
Author Organization [facility] Address [address] [place] [address] Care Team Providers Care Cash Specialist Name Role Phone Unavailable Primary Care Provider [...]
--- OUTSIDE RECORDS SUMMARY | 2023-11-16 08:58 | XMS_ITS | Encounter Summary ---
Author Organization [facility] Address [address] [place] [address] Care Team Providers Care Venetian Blind Mechanic Name Role Phone Unavailable Primary Care Provider Unavailabl e Prior Encounters Date Type Department Care Team Description 06/08/2021 12:00 PM MST Office Visit [facility] [address], [facility] [address] [place] [address] Keith Guevara, DDS Plan of Treatment Not on file Procedures Procedure Name Priority Date/Time Associated Diagnosis Comments ADDITIONAL X-RAY Routine 06/08/2021 12:0 0 PM MST SINGLE X-RAY Routine 06/08/2021 12:00 PM MST LIMITED ORAL EVALUATION - PROBLEM FOCUSED Routine 06/08/2021 12:00 PM MST 7 ROOT CANAL Routine 06/08/2021 12:00 AM MST Visit Diagnoses Not on file
--- OUTSIDE RECORDS SUMMARY | 2023-11-16 08:58 | XMS_ITS | Clinical Summary ---
Author Organization [facility] Address [place], [place] [address] Care Team Providers Care Project Program Manager Name Role Phone Julio Gonzales MD Primary Care Provider [phone] Allergies No known active allergies Medications Medication [...] 6:45 AM 03/13/2013 7:55 PM Care Teams Project Program Manager Relationship Specialty Start Date End Date Julio Gonzales MD PCP - General Family Practice 03/09/13
[2023-11-16] MEDS: SODIUM CHLORIDE 0.9 % (FLUSH) 10 ML SYRINGE IVF (09:53)
[2023-11-16] MEDS: fentaNYL 100 MCG/2 ML inj IVP (09:59)
[2023-11-16] MEDS: MIDAZOLAM HCL 1 MG/ML inj IVP (09:59)
--- NOTE | 2023-11-16 10:08 | SUR.PREOP ---
TIME?OUT:?0958 PT/RN/MDA?VERIFICATION?OF?SURGICAL?SITE Left Shoulder,?PROCEDURE Nerve Block,?AND?CONSENT OBTAINED?PRIOR?TO?INVASIVE?PROCEDURE.
[2023-11-16] MEDS: CEFAZOLIN 2 GM in 0.9 % SODIUM CHLORIDE Mini-bag 100 ML IVPB ×2 (10:28→19:03)
[2023-11-16] MEDS: TRANEXAMIC ACID 100 MG/ML INJ 1000 MG IV (10:30)
--- NOTE | 2023-11-16 10:33 | W.PM.H&PU ---
History & Physical Update History & Physical Update H&P Reviewed and patient assessed: No changes noted
--- NOTE | 2023-11-16 10:35 | CRLHL7_ITS ---
For Patients: As a result of the Cures Act, medical imaging exams and procedure reports are released immediately into your electronic medical record. You may view this report before your referring provider. If you have questions, please contact your health care provider. INDICATION: Postop. FINDINGS: Two views of the left shoulder show left shoulder arthroplasty changes which appear intact. No evidence of acute fracture or dislocation. No other bony or soft tissue abnormalities identified. Dictated by Elia Nam MD @ 11/17/2023 1:30:30 PM (Electronically Signed)
--- NOTE | 2023-11-16 10:52 | W.ANESCHARGE ---
Anesthesia Charges Start Date/Time Anesthesia Start Date: 11/16/23 Anesthesia Start Time: 10:14 Stop Date/Time Anesthesia Stop Date: 11/16/23 Anesthesia Stop Time: 12:44 Summary Extremes of Age - Over 70 or under 1: MDA
--- NOTE | 2023-11-16 10:52 | W.PM.NB ---
Nerve Block Nerve Block Time Seen by Provider: 10:02 Date Seen: 11/16/23 Type of block requested by surgeon for post-operative analgesia: supraclavicular Side: left Time out performed: Yes Verification of patient name: Yes Verification of date of : Yes Site marking: site marked Name of person performing procedure: Wesley Continuous monitoring Was continuous monitoring of O2 sat, B/P, radiation monitor, recorded every 15 minutes?: Yes Procedure Checklist: sterile prep, needles and gloves Ultrasound guided. Images saved: Yes Medications given in 5ml increments after negative aspiration: Ropivicaine %: 0.5 mL: 20 Needle gauge: 22 Decadron (mg): 10 Precedex (mcg): 25 Patient tolerated procedure well: Yes Block Charges Block Charge (with Pro Fee): Brachial Plexus Use of Ultrasound Machine for Block: Yes- US Guidance/pain block
--- NOTE | 2023-11-16 12:16 | PM.ORPRC ---
Procedure Note Date of procedure: 11/16/23 Procedure: PREOPERATIVE DIAGNOSIS: 1. Left shoulder osteoarthrosis, primary, severe with poor rotator quality/integrity POSTOPERATIVE DIAGNOSIS: 1. Left shoulder osteoarthrosis,[ primary, severe with poor cuff tissue quality 2. Left long head of the biceps tendinopathy and tenosynovitis PROCEDURE: 1. Left reverse shoulder arthroplasty. 2. Left long head of biceps open tenodesis SURGEON: Daniele Diaz MD. SECURITY ANALYST: Lee Collins PA-C - Of note, a skilled purchasing administrative assistant was critical for this case to aid in patient positioning, tissue retraction, limb manipulation/positioning, retraction for glenoid exposure, which was challenging, awareness and protection of critical structures, and closure. ANESTHESIA: General plus supraclavicular block EBL: 200 ml IMPLANTS: DJ0 surgical Altivate humeral stem size 10 small shell, short with P2 porous coating vitamin E neutral poly small socket insert RSP glenoid base plate P2 porous coating with 2 perimeter locking screws 32 neutral glenosphere with retaining screw COMPLICATIONS: None evident INDICATIONS: The patient is a pleasant 83-year-old female who has experienced severe left shoulder pain and difficulty with use. Workup included imaging which revealed severe osteoarthrosis along with concern for rotator cuff quality. Physical exam was consistent with associated pain. Given the deformity, the dysfunction, and the pain, and failure of nonoperative management, recommendation was made for surgery. DESCRIPTION OF PROCEDURE: Following a thorough discussion of risks, benefits, and alternatives, consent was obtained and the left shoulder was marked. The patient was brought to the operating room and placed supine on the operating table. Induction of anesthesia was undertaken. 2 g IV Ancef and 1 g tranexamic acid was administered within 1 hr of incision preoperatively. Appropriate time-out was performed identifying proper patient, site, and procedure. The operative extremity was prepped and draped in the appropriate sterile fashion using ChloraPrep after the patient was positioned in the lazy beach chair position with head in neutral alignment and all bony prominences well padded. A longitudinal incision was made for deltopectoral approach. Deltoid was retracted laterally. Cephalic vein was identified and retracted laterally as well. Vein was spared/protected throughout the case. The clavipectoral fascia was identified and divided longitudinally staying lateral to the conjoined tendon / coracoid. The conjoined tendon was protected with a blunt Hohmann. The long head of the biceps tendon was identified and the bicipital sheath released. The upper 1/4 of the pectoralis major was also released from its insertion. The long head of the biceps was tenodesed to the pectoralis major tendon. The remaining proximal tendon tissue was excised. The rotator cuff was inspected and found to have good integrity with the subscapularis but fair integrity with a supraspinatus], and a decision for a reverse shoulder arthroplasty was confirmed. The long head of biceps, of note, was significant flattened, thickened, with abundant tenosynovitis. A subscapularis cuff of tissue was left via tenotomy for later repair with the remaining subscapularis released in a subperiosteal fashion with the Bovie. This was tagged for later repair. The 3 sisters were cauterized. The upper subscapularis was released from the capsule with a curved Mckeon scissors towards the glenoid. The inferior subscapularis was divided from the capsular tissue on its caudal surface with particular caution for the axillary nerve. This was palpated anterior to the subscapularis both prior to and near the finish of the case. Inferior humeral head osteophytes were excised with caution taken throughout the case with regards to the axillary nerve. The humerus was dislocated, and humeral head cut completed. Then a protector plate was applied. We turned our attention to the glenoid. The humerus was retracted posteriorly. The subscap was protected anteriorly and the labrum/long head biceps origin was excised circumferentially. The capsule was released along the anterior and inferior portions of the glenoid cautiously with a Avendaño elevator being careful not to penetrate deep. The glenoid had appropriate exposure, and was prepared with the cannulated system with a target of approximately 0-3? of inferior tilt and 3? retroversion (patient had 17 ? of retroversion initially). [Utilizing the match Point 3D printed guide, the guide pin was placed. The 3D printed jig removed and after placing the guide pin, the tap was placed followed by the glenoid reaming. The real base plate was opened, and inserted, and excellent compression/purchase was achieved with the central screw. Peripheral screws were then drilled, measured, and placed. The glenosphere was then placed consistent with the preoperative plan utilizing the above noted glenosphere. After securing the glenosphere with the locking, torque limited screw, attention was turned back to the humerus. A canal finder was placed followed by various reamers by hand. The real humeral stem was then opened and inserted with excellent metaphyseal fit and stability. Trial poly was placed and the shoulder reduced. Excellent reduction and stability achieved with appropriate tension on the conjoined tendon. At this stage, trial implants were removed, and the real implants inserted and the shoulder reduced. A 3 minute Betadine soak was performed followed by a thorough irrigation with normal saline. Subscapularis was repaired with #1 PDS to the cuff of tissue on the lesser tuberosity. Excellent reapproximation of tissue achieved. Hemostasis was found to be appropriate. The deltopectoral interval was reapproximated with 0 Vicryl, subcutaneous and subcuticular closure was then performed with number 2-0 Vicryl and 4-0 Monocryl, respectively. A skilled purchasing administrative assistant was critical for this case to aid in patient positioning, tissue retraction, limb manipulation/positioning, retraction for glenoid exposure, which was challenging, awareness and protection of critical structures, and closure. PLAN: 1. Sling at all times for the operative upper extremity. 2. AROM of elbow, forearm, wrist, and digits as tolerated. 3. PT/OT consults for education and assistance. 4. Social consult for discharge planning. 5. 23 hr perioperative antibiotics. 6. Early ambulation, and SCDs for DVT prophylaxis. 7. Admit to the hospital for the above 8. Analgesics p.r.n.
--- NOTE | 2023-11-16 12:46 | P.ANES_ITS ---
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
[2023-11-16] MEDS: LACTATED RINGERS 1000 ML 1,000 ML 75 ML IV (19:03)
--- NOTE | 2023-11-16 19:42 | P.IMCN_ITS ---
Date of Consult Patient: [facility] Patient Consult date: 11/16/23 Requesting Physician: Orthopedics Primary Care Provider: Julio Gonzales MD Consult Narrative Narrative: Jeri Rojas is a 83 year old female admitted to the hospital for left total shoulder arthroplasty. Procedure performed by Dr. Diaz. He requests consultation for management of medical problems postoperatively. There were no operative complications. She is right handed patient. Postoperatively she is doing well. She reports no concerns at this time. She still has the effect of her nerve block causing numbness and paresthesias and weakness in her left arm. No dyspnea. No nausea no chills. Preoperatively she was doing well she has had no recent medical problems illness or injury. There are no concerns at her preop physical. Review of Systems Narrative: Negative except as noted above PFSH [facility] Medical History (Updated 11/16/23 @ 19:47 by Stone Huerta MD) Hypothyroid ?E03.9 - Hypothyroidism, unspecified (ICD-10) Osteoarthritis of left shoulder ?M19.012 - Primary osteoarthritis, left shoulder (ICD-10) Hypertension ?I10 - Essential (primary) hypertension (ICD-10) Health care directive on file ?Z78.9 - Other specified health status (ICD-10) Neck pain (03/07/12) ?M54.2 - Cervicalgia (ICD-10) Radicular pain of upper extremity ?M54.10 - Radiculopathy, site unspecified (ICD-10) Surgical History (Updated 11/16/23 @ 19:51 by Stone Huerta MD) Status post reverse total arthroplasty of left shoulder ?Z96.612 - Presence of left artificial shoulder joint (ICD-10) 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) ?Z96.652 - Presence of left artificial knee joint (ICD-10) History of vein stripping ?Z98.890 - Other specified postprocedural states (ICD-10) Status post tubal ligation (02/11/09) ?Z98.51 - Tubal ligation status (ICD-10) Status post lumbar spine operative procedure for decompression of spinal cord ?Z98.890 - Other specified postprocedural states (ICD-10) Status post left foot surgery (02/11/09) ?Z98.890 - Other specified postprocedural states (ICD-10) Status post cataract extraction ?Z98.49 - Cataract extraction status, unspecified eye (ICD-10) Status post bunionectomy (02/11/09) ?Z98.890 - Other specified postprocedural states (ICD-10) 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 She has 2 steps to get into the house but then lives on 1 level. They have installed hand rails on both sides to get into the house. She does not smoke. She rarely drinks alcohol. What is your current living situation?: I presently have a place to live In the past 12 months, utilities in danger of being shut off: no In past 12 months, lack of transportation kept you from medical appts, meetings, work, or getting things needed for daily living: no In the past 12 mos, have been you worried that your food would run out before you had money to buy more?: never true In the past 12 mos, the food you bought just didn't last and you didn't have money to buy more?: never true Smoking Status: Never smoker Do you use any of these nicotine containing products: None How often do you have a drink containing alcohol: never How many standard drinks containing alcohol do you have on a typical day: 1 or 2 How often do you have six or more drinks on one occasion: Never AUDIT-C Alcohol total score: 0 Non-prescribed substance use: denies use Caffeine: No How often does anyone, including family, friends and others, physically hurt you : never How often does anyone, including family, friends and others, insult or talk down to you: never How often does anyone, including family, friends and others, threaten you with harm: never How often does anyone, including family, friends and others, scream or curse at you: never Little interest or pleasure in doing things: not at all Feeling down, depressed, or hopeless: not at all Meds Home Medications and Allergies Home Medications ?Medication ?Instructions ?Recorded ?Confirmed ?Type multivitamin 1 tab PO HS 04/14/22 11/16/23 History levothyroxine 25 mcg tablet 25 mcg PO DAILY 11/16/23 11/16/23 History mirabegron 50 mg tablet,extended 50 mg PO DAILY 11/16/23 11/16/23 History release 24 hr pravastatin 40 mg tablet 40 mg PO QPM 11/16/23 11/16/23 History Allergies Allergy/AdvReac Type Severity Reaction Status Date / Time lisinopril AdvReac Intermediate lip Verified 11/16/23 09:11 swelling Exam Narrative: Exam Narrative: She is alert pleasant and appears in no distress. She gives her own history with good detail. Oropharynx is notable for small airway otherwise normal. Neck is supple out mass or adenopathy. Respirations are clear to auscultation. Good air exchange all lung whitehead. Breath sounds appears symmetric. Cardiovascular: Distant S1, S2, regular rate and rhythm. Abdomen is soft without tenderness. She has diminished sensation and motor function in her left upper extremity. Fingers are warm to touch with good capillary refill and good radial pulse. Right upper extremity and bilateral lower extremities with intact pulses and no edema Const: Vital Signs, click to edit/add: Vital Signs - 24 hr 11/16/23 09:14 11/16/23 09:58 11/16/23 10:05 Temperature 98.1 F Pulse Rate 81 83 83 Respiratory Rate 16 16 16 Blood Pressure 158/93 H 151/88 H 116/70 Pulse Oximetry 96 99 99 Oxygen Delivery Me thod Room Air Nasal Cannula Nasal Cannula Oxygen Flow Rate 2 2 11/16/23 12:39 11/16/23 12:45 11/16/23 12:50 Temperature 97.6 F Pulse Rate 68 70 70 Respiratory Rate 16 16 14 Blood Pressure 131/76 119/78 122/76 Pulse Oximetry 94 93 93 Oxygen Delivery Me thod Nasal Cannula Nasal Cannula Nasal Cannula Oxygen Flow Rate 3 3 3 11/16/23 12:55 11/16/23 13:00 11/16/23 13:05 Temperature 97.4 F L Pulse Rate 72 69 78 Respiratory Rate 12 16 14 Blood Pressure 122/76 122/77 119/75 Pulse Oximetry 94 96 96 Oxygen Delivery Me thod Room Air Room Air Room Air Oxygen Flow Rate 11/16/23 13:10 11/16/23 13:15 11/16/23 13:30 Temperature 97.4 F L 97.6 F Pulse Rate 73 73 60 Respiratory Rate 16 16 16 Blood Pressure 118/77 115/74 116/75 Pulse Oximetry 96 96 93 Oxygen Delivery Me thod Room Air Room Air Room Air Oxygen Flow Rate 11/16/23 13:45 11/16/23 14:00 11/16/23 14:29 Temperature 97.8 F 97.8 F 97.8 F Pulse Rate 75 68 75 Respiratory Rate 16 16 16 Blood Pressure 123/81 112/95 H 123/75 Pulse Oximetry 93 95 93 Oxygen Delivery Me thod Room Air Room Air Room Air Oxygen Flow Rate 3 11/16/23 14:30 11/16/23 15:00 11/16/23 15:00 Temperature 97.8 F Pulse Rate 77 Respiratory Rate 16 16 16 Blood Pressure 108/77 Pulse Oximetry 94 93 93 Oxygen Delivery Me thod Room Air Room Air Room Air Oxygen Flow Rate 11/16/23 15:00 11/16/23 16:00 11/16/23 17:00 Temperature 97.8 F Pulse Rate 68 75 71 Respiratory Rate 16 16 16 Blood Pressure 105/75 100/71 105/68 Pulse Oximetry 93 93 93 Oxygen Delivery Me thod Room Air Room Air Room Air Oxygen Flow Rate 0 11/16/23 18:00 Temperature 98 F Pulse Rate 75 Respiratory Rate 16 Blood Pressure 110/74 Pulse Oximetry 93 Oxygen Delivery Me thod Room Air Oxygen Flow Rate 0 Documenting provider has reviewed patient's vital signs: yes Assessment and Plan Assessment and plan (1) Status post reverse total arthroplasty of left shoulder: Problem comment: 11/16/2019, Dr. Diaz, no complications Status: Acute (2) Hypertension: Status: Acute (3) Hypothyroid: Status: Acute (4) Hyperlipidemia: Status: Acute Plan Continue in hospital for management of postoperative pain, therapy evaluation and management and monitoring for complications of chronic medical problems. Anticipate discharge to home with tomorrow. Total Time Spent Total Time Spent: Total time spent today is 45 minutes, 30 minutes in coordination of care discussing with patient and other providers ongoing management of postoperative pain and rehabilitation
[2023-11-16] MEDS: PRAVASTATIN SODIUM 20 MG TABLET 40 MG PO (20:47)
[2023-11-16] MEDS: MULTIVITAMIN/MINERALS 1 TABLET 1 TAB PO (20:47)
[2023-11-16] MEDS: CITALOPRAM HYDROBROMIDE 20 MG TABLET PO (20:47)
[2023-11-16] MEDS: SENNOSIDES 1 TAB TABLET 2 TAB PO (20:47)
[2023-11-16] MEDS: LEVOTHYROXINE 25 MCG TABLET PO (20:48)
[2023-11-17] MEDS: ACETAMINOPHEN 500 MG TABLET 1000 MG PO ×2 (00:44→06:32)
[2023-11-17] MEDS: CEFAZOLIN 2 GM in 0.9 % SODIUM CHLORIDE Mini-bag 100 ML IVPB (02:53)
[2023-11-17 03:32] VITALS: BP 106/70; PULSE 87; RESP 16; TEMP 36.6; O2SAT 90
[2023-11-17] MEDS: OXYCODONE 5 MG TABLET PO ×2 (03:45→09:11)
[2023-11-17 06:43] LABS: Hematocrit 35.3 % (33.0-51.0); Hemoglobin* 12.4 gm/dL (12.0-16.0); Mean Corpuscular HGB Conc 35 gm/dL (32-36); Mean Corpuscular Hemoglobin 34 pg (26-34); Mean Corpuscular Volume 97 fL (80-100); Platelet Count* 199 K/uL (140-440); Red Blood Count 3.64 m/uL (4.00-5.20); White Blood Count* 8.95 K/uL (4.50-11.00)
--- NOTE | 2023-11-17 06:45 | PC.NURSE ---
End of shift [id number]: A&O pleasant and cooperative. VSS w/ sats> 90% on RA. Rating pain in left shoulder overnight 0-08/13. See eMAR for intervention. A1 w/ cane and gait belt. Dressing to shoulder c/d/i. +CMS. Ice to shoulder. Voiding adequate amounts. SL. Using call light appropriately.
[2023-11-17 06:55] LABS: Potassium* 3.6 mmol/L (3.6-5.1); Sodium* 133 mmol/L (135-149)
[2023-11-17 06:57] LABS: Slide Review Reflex No
[2023-11-17 06:58] LABS: Blood Urea Nitrogen* 14 mg/dL (7-30); Creatinine* 0.6 mg/dL (0.5-1.5); Est. Creatinine Clearance* 33.29; Estimated Glomerular Filt Rate 90 ml/min
[2023-11-17 07:00] VITALS: BP 130/86; PULSE 90; RESP 20; TEMP 37; O2SAT 93
[2023-11-17] MEDS: SENNOSIDES 1 TAB TABLET 2 TAB PO (09:12)
--- NOTE | 2023-11-17 09:20 | PM.ORPN ---
Subjective Subjective Date Seen: 11/17/23 Principal diagnosis: Status postop day 1 left reverse total shoulder arthroplasty Interval history: Patient reports doing okay. Nerve block wearing off, more pain this morning starting around 0300 hours. No acute events over night. Pain managed with scheduled and PRN medications, ice. DVT prophylaxis: SCDs, walking. Denies fevers, chills, aches, N/V, CP, SOB/PADILLA, or lightheadedness. States that she is starting get junk out of her lungs from surgery. Using incentive spirometer. Ortho Exam Narrative Exam Narrative: -Patient appears comfortable in recliner; no apparent acute distress -Alert and oriented times 3 -Operative shoulder swollen; soft, supple tissues; no obvious erythema. No ecchymosis. Warmth appropriate -Surgical dressing clean, dry, intact; no obvious drainage, no erythematous streaking peripheral to the bandage -Bilateral calves soft and supple; no significant swelling, edema, tenderness, erythema, discoloration, warmth, or palpable cords -2+ radial pulse, intact dermatomes and myotomes distally Const Vital Signs, click to edit/add: Vital Signs - 24 hr 11/16/23 09:58 11/16/23 10:05 11/16/23 12:39 Temperature 97.6 F Pulse Rate 83 83 68 Pulse Rate [Pulse Oximeter] Respiratory Rate 16 16 16 Blood Pressure 151/88 H 116/70 131/76 Blood Pressure [Left Arm] Pulse Oximetry 99 99 94 Oxygen Delivery Method Nasal Cannula Nasal Cannula Nasal Cannula Oxygen Flow Rate 2 2 3 11/16/23 12:45 11/16/23 12:50 11/16/23 12:55 Temperature 97.4 F L Pulse Rate 70 70 72 Pulse Rate [Pulse Oximeter] Respiratory Rate 16 14 12 Blood Pressure 119/78 122/76 122/76 Blood Pressure [Left Arm] Pulse Oximetry 93 93 94 Oxygen Delivery Method Nasal Cannula Nasal Cannula Room Air Oxygen Flow Rate 3 3 11/16/23 13:00 11/16/23 13:05 11/16/23 13:10 Temperature Pulse Rate 69 78 73 Pulse Rate [Pulse Oximeter] Respiratory Rate 16 14 16 Blood Pressure 122/77 119/75 118/77 Blood Pressure [Left Arm] Pulse Oximetry 96 96 96 Oxygen Delivery Method Room Air Room Air Room Air Oxygen Flow Rate 11/16/23 13:15 11/16/23 13:30 11/16/23 13:45 Temperature 97.4 F L 97.6 F 97.8 F Pulse Rate 73 60 75 Pulse Rate [Pulse Oximeter] Respiratory Rate 16 16 16 Blood Pressure 115/74 116/75 123/81 Blood Pressure [Left Arm] Pulse Oximetry 96 93 93 Oxygen Delivery Method Room Air Room Air Room Air Oxygen Flow Rate 11/16/23 14:00 11/16/23 14:29 11/16/23 14:30 Temperature 97.8 F 97.8 F 97.8 F Pulse Rate 68 75 77 Pulse Rate [Pulse Oximeter] Respiratory Rate 16 16 16 Blood Pressure 112/95 H 123/75 108/77 Blood Pressure [Left Arm] Pulse Oximetry 95 93 94 Oxygen Delivery Method Room Air Room Air Room Air Oxygen Flow Rate 3 11/16/23 15:00 11/16/23 15:00 11/16/23 15:00 Temperature Pulse Rate 68 Pulse Rate [Pulse Oximeter] Respiratory Rate 16 16 16 Blood Pressure 105/75 Blood Pressure [Left Arm] Pulse Oximetry 93 93 93 Oxygen Delivery Method Room Air Room Air Room Air Oxygen Flow Rate 11/16/23 16:00 11/16/23 17:00 11/16/23 18:00 Temperature 97.8 F 98 F Pulse Rate 75 71 75 Pulse Rate [Pulse Oximeter] Respiratory Rate 16 16 16 Blood Pressure 100/71 105/68 110/74 Blood Pressure [Left Arm] Pulse Oximetry 93 93 93 Oxygen Delivery Method Room Air Room Air Room Air Oxygen Flow Rate 0 0 11/16/23 19:53 11/16/23 20:45 11/16/23 23:00 Temperature 97.7 F 97.6 F 97.4 F L Pulse Rate 98 96 Pulse Rate [Pulse Oximeter] 86 Respiratory Rate 16 16 16 Blood Pressure 114/71 105/76 Blood Pressure [Left Arm] 103/69 Pulse Oximetry 90 90 92 Oxygen Delivery Method Room Air Room Air Room Air Oxygen Flow Rate 0 11/16/23 23:00 11/17/23 03:32 Temperature 97.8 F Pulse Rate Pulse Rate [Pulse Oximeter] 87 Respiratory Rate 16 16 Blood Pressure Blood Pressure [Left Arm] 106/70 Pulse Oximetry 92 90 Oxygen Delivery Method Room Air Room Air Oxygen Flow Rate 0 Assessment and Plan Assessment and plan (1) Status post reverse total arthroplasty of left shoulder: Problem details: 11/16/2023, Dr. Diaz, no complications Status: Acute (2) Hypertension: Status: Acute (3) Hypothyroid: Status: Acute (4) Hyperlipidemia: Status: Acute Plan - Complete 23 hour perioperative antibiotics. - PT/OT consult for education and assistance. - Social work consult for discharge planning - Prescribed analgesics as needed - DVT prophylaxis: SCDs and ambulation - Anticipation is for discharge to home with spouse today, 11/17/2023 if the patient remains medically stable, pain is controlled, and they are safe with mobilization.
[2023-11-17 10:26] VITALS: RESP 20; O2SAT 93
--- NOTE | 2023-11-17 11:22 | PC.NURSE ---
Discharge - Pt alert, oriented, cooperative. Family at bedside. Pt tolerating RA, regular diet/fluids. Reported pain as 6/10 in surgical shoulder, managed with medication per MAR with verbalized improvement. Ice on site, dressing CDI. IV removed with catheter intact. Pt discharged to home with spouse via wheelchair at approximately 1100.
== END 2023-11-17 11:00 | disposition home or self-care (01) ==
LOC: OR 08:56 → MEDSURG 08:59
PROVIDERS: PCP Family Medicine; Visit Provider Orthopaedic Surgery Sports Medicine
PROC: 0RRJ0JZ Replacement of Right Shoulder Joint with Synthetic Substitute, Open Approach (ICD-10-PCS; CPT 23472; principal; 2023-11-16 11:00)
DX: M19.012 Primary osteoarthritis, left shoulder (principal); M75.22 Bicipital tendinitis, left shoulder; G89.18 Other acute postprocedural pain; I10 Essential (primary) hypertension; E03.9 Hypothyroidism, unspecified; E78.5 Hyperlipidemia, unspecified
CPT/HCPCS: 23472; 23430; 01638; 36415; 64415; 73030; 76942; 82565; 84132; 84295; 84520; 85027; 97165; 97535; 99100; A9153; A9270; C1713; C1776; J0690; J1100; J2250; J2371; J2405; J2704; J2710; J2795; J3010; J7120

== ENCOUNTER 2024-02-01 10:30 | Outpatient (RCR) | payer MEDICARE, SELFPAY ==
--- NOTE | 2023-11-09 14:00 | OT.OPOE ---
OT Outpatient Ortho Eval OT Outpatient Ortho Eval* Start: 11/09/23 12:23 Freq: Status: Active Protocol: Document 11/09/23 12:23 ENRIQUETA (Rec: 11/09/23 13:54 ENRIQUETA [id number]) E-signed By Edita Castle, OTR/L, CLT OT OP Ortho Eval Details Complexity Complexity Low Insurance Information Insurance Information Medicare B Insurance Information Comments Patient is 5 foot 2 inches Weight 200 lbs Outpatient History/Precautions Current Condition/Medical Diagnosis Referring Provider Dr. 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 Diaz Z96.652 - Presence of left artificial knee joint (ICD-10) Osteoarthritis of left shoulder (Acute) Severe, [id number] M19.012 - Primary osteoarthritis, left shoulder (ICD-10) Hypertension (Acute) I10 - Essential (primary) hypertension (ICD-10) Hyperlipidemia (Acute) E78.5 - Hyperlipidemia, unspecified (ICD-10) Hypothyroid (Acute) E03.9 - Hypothyroidism, unspecified (ICD-10) Anxiety (Acute 03/02/11) F41.9 - Anxiety disorder, unspecified (ICD-10) Left ankle pain (Acute) M25.572 - Pain in left ankle and joints of left foot (ICD- 10) Osteoarthritis of right knee ( Chronic) M17.11 - Unilateral primary osteoarthritis, right knee ( ICD-10) Spastic bladder (Acute) N32.89 - Other specified disorders of bladder (ICD-10) Colon polyp (Acute) K63.5 - Polyp of colon (ICD-10 ) Right inguinal hernia (Acute) K40.90 - Unilateral inguinal hernia, without obstruction or gangrene, not specified as recurrent (ICD-10) Diverticulosis (Acute) K57.90 - Diverticulosis of intestine, part unspecified, without perforation or abscess without bleeding (ICD-10) Medications: acetaminophen 500 - 1,000 mg ( 1 - 2 x 500 mg) PO Q6H PRN MDD 4000mg per day amlodipine 5 mg PO HS citalopram 20 mg PO HS levothyroxine 25 mcg PO QDAY mirabegron ER 50 mg PO QDAY mirabegron ER (Myrbetriq) 25 mg PO HS multivitamin 1 tab PO HS pravastatin 40 mg PO DAILY Medical/Functional History Medical History Reviewed Yes Prior Level of Function/Mobility Jolene lives with her near [place]. She has 2 steps to get into the house but then lives on 1 level. Up at the door there is a vertical grab bar installed ( right side). No pets. She does not smoke. She rarely drinks alcohol. 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 Her pain is sharp, intermittent and relieves with rest. She struggles to reach and get her seatbelt on due to stiffness and pain. The patient has tried ice, Tylenol /oral NSAIDs, rest, activity modification all with minimal and non-lasting relief. Pain Assessment Pain Pain Yes Pain Comments 2/10 at rest and 5/10 with activity Range of Motion and Strength Shoulder Range of Motion and Strength Shoulder Range of Motion and Strength L shoulder flexion is very limited, upper traps kicks in at 80 degrees shoulder flexion with increased pain R shoulder AROM is WFL Elbow/Forearm Range of Motion and Strength Elbow/Forearm Range of Motion and Bilaterally AROM is WFL Strength Wrist Range of Motion and Strength Wrist Range of Motion and Strength Bilaterally AROM is WFL Hand Pinch/Director [employer] Strength Hand Pinch/Director [employer] Strength Hand Pinch/Director [employer] Strength Left Hand,Right Hand Left Hand [employer] Strength Position 1 in Elbow 30 Flexion (lbs) Director [employer] Strength Position 2 in Elbow 35 Extension (lbs) Lateral Pinch Strength (lbs) 9 Three Point Pinch (lbs) 9 Right Hand [employer] Strength Position 1 in Elbow 40 Flexion (lbs) Director [employer] Strength Position 2 in Elbow 40 Extension (lbs) Lateral Pinch Strength (lbs) 10 Three Point Pinch (lbs) 10 OT Problems Problems Problems Decreased Strength,Decreased Range of Motion,Pain,Lifting, Gripping,Pinching Problems Comments Imagining: Shows severe glenohumeral osteoarthrosis with bone-on- bone joint space loss, subchondral sclerosis, subchondral cystic change, and osteophyte formation. Mild posterior humeral head subluxation. No acute fractures avulsions. No signs of AVN. Patient Potential Excellent Assessment Assessment Assessment 83 year old female patient states she has pain in the L shoulder with laying on the shoulder. Her pain is sharp, intermittent and relieves with rest. She struggles to reach and get her seatbelt on due to stiffness and pain. The patient has tried ice, Tylenol /oral NSAIDs, rest, activity modification all with minimal and non-lasting relief. Patient saw Dr. Diaz in clinic on 10/14/23 and Imaging report showed: severe glenohumeral osteoarthrosis with [id number] joint space loss, subchondral sclerosis, subchondral cystic change, and osteophyte formation. Mild posterior humeral head subluxation. No acute fractures avulsions. No signs of AVN. A plan was made for patient to undergo surgery for a L RSA on 11/16/23. Pt educated in RSA precautions, falls prevention, positioning and edema for post -op, as well as her post-op exercises that she will be doing ( handouts were provided). Pt asked insightful questions, verbalized her understanding of the information presented to her and returned demonstration of donning/ doffing the UE sling & optimal positioning for keeping shoulder precautions. Occupational Therapy Treatment Plan - OP Potential Rehabilitation Potential Excellent Barriers Barriers to goal attainment None noted Set Goals Goals Set with Patient Yes Goals Goals 1. Patient will be Indep with performing her post-op protocol for upcoming L RSA 2. Patient will have an understanding of her post op restrictions/precautions 3. Patient will demonstrate the ability to accurately jim /doff the UE sling Independently. Treatment Plan Treatment Plan Evaluation,Therapeutic Exercise,Education Expected Frequency 1x Week Expected Duration 2-4 Weeks Home Program Home Program Home Program Initiated Home Program Specifics Access Code: [email or web address] URL: [email or web address] Date: 11/09/2023 Prepared by: Edita Castle Exercises - Supported Elbow AROM - 3 x daily - 7 x weekly - 10 reps - Wrist Circles AROM - 3 x daily - 7 x weekly - 10 reps - Seated Straight Fist AROM - 3 x daily - 7 x weekly - 10 reps - Finger Spreading - 3 x daily - 7 x weekly - 10 reps Patient Education - TSA Precautions Joe If you?ve had a total shoulder replacement, there are some positions your surgeon may recommend you avoid during your recovery to protect your shoulder as it heals. It is important to follow these precautions and any other instructions your health care team gives you to allow your shoulder to heal properly. 1. Make sure to wear your sling as directed by your healthcare provider. Generally , it?s a good idea to keep your sling on at all times, except during self-care or when performing your home exercises. Always wear your sling while walking, standing, sleeping, or when you?re outside or in crowds. Wearing your sling around others alerts those around you to be cautious around your operated arm. It also helps avoid someone accidentally bumping or striking your arm. If you?re sitting or lying down at home, you may be allowed to take off your sling . Just be careful to keep your elbow tucked in to your side whenever you?re out of your sling. 2. Do not lift or carry anything with your operated arm that weighs more than one pound. This is about the weight of a coffee cup. Eating , drinking, and using a remote control are okay. 3. Do not bear weight through your operated arm, such as when pushing up from a chair. If you use a walker, it?s best to use a cane or hemiwalker while your shoulder recovers. ?These devices can be used with your non-operative arm. 4. Do not actively use your surgical shoulder. Avoid pushing, pulling, or lifting with that arm, such as to open or close a door. Avoid reaching overhead, to the side, behind your back, or across your chest. Also take care to avoid fast or jerking movements. You should not allow your elbow to move backwards, past your ribs. When lying down, support your upper arm with a pillow to keep it from moving backward. To get out of bed, roll onto your ?good side.? Then use your non-operative arm to push yourself up into a sitting position. 5. At first, you may find it more comfortable to sleep in a recliner. However, you may also sleep in a bed with a folded towel or sheet propped up behind your shoulder and upper arm for support. 6. Do not let your forearm or hand move out to the side. Gentle use of your elbow, wrist, and hand on your operated arm is okay as long as your arm is at your side and you keep your elbow in front of you. Your precautions may be different depending on your surgeon or rehab facility. Be sure to follow the instructions your health care team gives you. If you have any questions about which positions and movements to avoid, contact your healthcare provider. Certification Certification Statement I Certify That: Therapy Services Provided, Therapy Plan Established, Therapy Plan Reviewed Certification Information Clinic ID # [id number] Initial Certification Date 11/09/23 Recertification Due Date 11/16/23 Provider Signature Required Yes Provider Signature Shows Agreement With POC & Medical Necessity Physician NPI Number Write NPI# Here Physician Comment/Change Comment or Changes Physician Signature & Date Requested Please Sign/Date Here
--- NOTE | 2023-11-30 15:17 | PT.OPEX ---
PT [facility] Eval PT [facility] Outpatient Eval Start: 11/30/23 10:26 Freq: Status: Active Protocol: Document 11/30/23 10:26 SAUNDRA (Rec: 11/30/23 15:12 [facility] [id number]) E-signed By Deborah Méndez PT Physical Therapy Outpatient Evaluation Insurance Information Recert Due Date 02/27/24 Insurance Name Medicare B Medical Diagnosis L SHOULDER OA S/P LEFT rTSA 11/16/23 Treating Diagnosis LEFT SHOULDER PAIN LEFT SHOULDER WEAKNESS LEFT SHOULDER ROM Referring MD GOOD Subjective Subjective ARCELIA REPORTS SEVERAL YEARS OF SHOULDER CHALLENGES THAT PROGRESSIVELY WORSENED REQUIRING SURGICAL INTERVENTION. SHE IS PLEASED WITH HER CURRENT STATUS BUT DOES NOT HAVE HER SLING FOR TODAY'S VISIT AND DESCRIBES A DISCONNECT BETWEEN WHAT SHE BELIEVES SHE WAS INSTRUCTED AND THE PROTOCOL. YEAH, THEY BOTH JUST MOVED THEIR ARM LIKE THIS (AROM SHOULDER FLEX, EXT , ABD) OF WHICH I QUICKLY STOPPED HER AND BEGAN EXPLAINING THAT SHE IS READY FOR THIS TYPE OF MOTION. SHE WAS EQUALLY SURPRISED WHEN I MENTIONED THAT SHE SHOULD BE WEARING HER SLING SHE WAS TOLD OTHERWISE. I REFERENCED HER LAST VISIT WITH MIKEY AND SHE REMAINED BAFFLED. WE WILL ADDRESS TODAY DURING HER EVALUATION Pain Comments 09/13 Current Work Status Retired Occupation [employer]IRED [employer] Preferred Name ARCELIA Precautions Treatment Precautions/Contraindications -NO LIFTING -NO REACHING -WEAR SLING (SLING AND BOLTER) UNLESS BATHING/HYGEINE OR PERFORMING YOUR EXERCISE FOR 6 -NO EXCESSIVE MVMT OF SHOULDER -WEAR SLING UNTIL 6 WEEKS THEN WEAN SLOWLY Weight Bearing Status Non-Weight Bearing Objective Other/Pertinent Objective 11/30/23: SUPINE FLEX 92/ABD86/ ER NEUTRAL Assessment Assessment/Impression PATIENT IS AN [address] GOOD TO EVAL AND TX S/P rTSA ON 11/16/23; PMHX INCLUDES BUT NOT LIMITED TO MULTIPLE JOINT OA, H/O LEFT FOOT SURGERY, H/O LEFT CHRIS 2016, H/O LEFT TKA (2012), HTN , HYPOTHYROIDISM, HLD, ANXIETY , AND NECK PAIN WITH RADICULOPATHY. 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 HER INCISION IS PRISTINE AND ABSENT OF S/S OF INFECTION BUT IS FEELS SHE MAY HAVE UNDERSTOOD BOTH DR. GOOD AND MIKEY REGARDING HE SLING AND USE OF HER ARM. SHE HAS NOT WORN HER SLING AND BEEN PERFORMING AROM THINKING SHE IS HAS BEEN PERFORMING WHAT THEY BOTH SHOWED FOR PENDULUMS. TODAY WE DISCUSSED EXTENSIVELY HER RESTRICTIONS AND PRECAUTIONS PER DR. GOOD PROTOCOL, HOW TO BLAKE /DOFF HER SLING AND THE RATIONALE OF IT'S IMPORTANCE. WE REVIEWED HOME AND SLEEPING MODIFICATIONS TO SUPPORT HER ARM USING HER OPPOSITE ARM WHEN SEATED IF HER SLING GAVE HER GRIEF IN REGARDS TO HER CERVICAL ISSUES WELL SLEEPING ADAPTATIONS. SHE HAS BEEN PLACING HER ARM IN HER UNDERWEAR TO STABILIZE WHEN SHE SLEEPS D/T THE DIFFICULTY SHE ENCOUNTERED SLEEPING WITH SLING. AT THIS POINT, WE HAVE COURSE CORRECTED TO WEARING HER SLING FOR THE NEXT 2 WEEKS WHEN SHE IS UP AND ABOUT IN HER HOME AND ALWAYS WHEN SHE LEAVES HER HOME. ADDITIONALLY, I PROVIDED A DEMONSTRATION AND SHE PRACTICED WITH SEVERAL CORRECTIONS NEEDED TO ALLOW FOR MORE OF A PASSIVE APPROACH . SHE VERBALIZED UNDERSTANDING OF ALL SKILLED TEACHING AND UNDERSTANDS WHY THE SLING IMPORTANT AT THIS PHASE OF HER RECOVERY. WE DISCUSSED THE GOALS AT THIS POINT ARE (1) SYMPTOM MGMT, (2) PROTECTING SURGICAL SITE, (3) GAIN PASSIVE FLEX SUPINE. SEE ABOVE FOR PROM IN SUPINE AND BELOW FOR GOALS AND POC/FREQ. SHE IS APPROPRIATE FOR SKILLED PHYSICAL THERAPY TO ADDRESS THE RECOVERY S/P rTSA. EXTENSIVE TIME SPENT DISCUSSING RESTRICTIONS AND PRECAUTIONS, DONNING DOFFING SLING, REVIEWING HOME MODIFICATION AND EDUCATION ON SURGICAL PROCEDURE. ANSWERED PATIENTS QUESTIONS REGARDING THE ABOVE MENTIONED TOPICS WELL HER HEP, POSITIONING, AND OVERALL POC. Primary Functional Limitations USE OF LEFT UE Plan of Care Rehabilitation Potential Good Physical Therapy Goals STG IN 4-6 WEEKS: 1. PATIENT WILL DEMONSTRATE GOOD MGMT OF HIS PAIN AND EDEMA WITH REPORTED PAIN </3/ 10 DURING HIS HOME PROGRAM AND WITH THE PROGRESSION OF HIS PHYSICAL THERAPY. 2. PATIENT WILL RETURN TO INDEPENDENCE WITH ADL'S, RETURN TO DRIVING, AND MAINTAIN HIS PRECAUTIONS/ RESTRICTIONS 3. PATIENT WILL DEMONSTRATE PROM TO WFL TO PREPARE FOR RETURN TO FUNCTIONAL USE OF RIGHT UE; LTG WITHIN 10-12 WEEKS: 1. PATIENT WILL DEMONSTRATE AROM OF RIGHT SHOULDER TO WFL TO RETURN TO FULL FUNCTIONAL FOR ADL'S, IADL'S AND PEER CENTERED ACTIVITIES. 2. PATIENT WILL DEMONSTRATE FUNCTIONAL STRENGTH TO RETURN TO REACHING OVERHEAD, ANTERIORLY AND OUT TO SIDE NEEDED DURING PATIENT CENTERED ACTIVITIES. 3. PATIENT WILL DEMONSTRATE INDEPENDENCE WITH HIS HEP TO PROGRESS TWD THE ABVE MENTIONED GOALS, CONTINUED MGMT OF SYMPTOMS, AND ONGOING IMPROVEMENT WITH ROM, STRENGTH AND FUNCTION FOR A FULL RETURN TO ALL ACTIVITIES Coordination/Communication With Referral Source Treatment Plan/Direct Interventions Ice/Cold/Vasopneumatic,Joint Mobilization,Manual Therapy, Neuromuscular Re-ed,Orthotics/ Braces,Self-Care/Home Management,Therapeutic Activities,Therapeutic Exercises Frequency/Duration 2X/WK Patient Will Be Discharged From Therapy Completion of LTG(s), Independent w/HEP Evaluation Billing Untimed Code Treatment Minutes 20 PT Eval No Charge No Complexity Moderate Certification Information Initial Certification Date 11/30/23 Ending Certification Date 02/27/24 Provider Signature Required Yes Provider Signature Shows Agreement With POC & Medical Necessity Physician NPI Number Write NPI# Here Physician Comment/Change : Physician Signature & Date Requested Please Sign/Date Here
== END 2024-02-15 09:20 | disposition home or self-care (01) ==
PROVIDERS: PCP Family Medicine; Visit Provider Orthopaedic Surgery Sports Medicine
DX: M19.012 Primary osteoarthritis, left shoulder (principal); Z51.89 Encounter for other specified aftercare
CPT/HCPCS: 97110; 97112; 97140; 97162; 97165; X5282

== ENCOUNTER 2024-04-18 10:26 | Outpatient (CLI) | payer MEDICARE, SELFPAY ==
--- OUTSIDE RECORDS SUMMARY | 2024-04-18 10:28 | XMS_ITS | Clinical Summary ---
[facility] Address [address] [place] [address] Care Team Providers Care Associate Professor Of Sociology Name Role Phone Unavailable Primary Care Provider Unavailabl e Allergies No known active allergies Medications acetaminophen (TYLENOL) 500 mg tablet Active aspirin 325 mg tablet Active chlorthalidone (HYGROTON) 25 mg tablet Take 25 mg by mouth. Active citalopram (CeleXA) 20 mg tablet Take 20 mg by mouth. Active gabapentin (NEURONTIN) 300 mg capsule Take 300 mg by mouth. Active gabapentin 300 mg tablet extended release 24 hr Active lisinopriL (PRINIVIL,ZESTRI L) 20 mg tablet Take 20 mg by mouth. Active magnesium oxide (MAG-OX) 400 mg (241.3 mg magnesium) tablet Active mirabegron (Myrbetriq) 25 mg tablet extended release 24 hr Active potassium chloride (MICRO-K) 10 mEq CR capsule Take 10 mEq by mouth. Active pravastatin (PravachoL) 40 mg tablet Active Vitamin-B complex split tablet Active naproxen sodium (ANAPROX) 110 MG tablet Active Active Problems Problem Noted Date Diagnosed Date Arthritis 06/08/2021 Social History Tobacco Use Types Packs/Day Years Used Date Smoking Tobacco: Former Cigarettes 0 02/18/1959 - 05/20/1968 Smokeless Tobacco: Never Alcohol Use Standard Drinks/Week Comments Yes 0 (1 standard drink = 0.6 oz pur e alcohol) Rarely Comments Unknown Sex and Gender Information Value Date Recorded Sex Assigned at Not on file Legal Sex Female 3:12 PM PST Gender Identity Not on file Sexual Orientation Not on file Plan of Treatment Health Maintenance Due Date Last Done Comments Dental Oral Exam 1942 Dental Prophylaxis 1942 Dental X-Ray: Bitewings 1942 Dental X-Ray: Full Mouth 1942 Dental X-Ray: Panoramic 1940 Insurance [facility] PPO [place] [id number]
--- OUTSIDE RECORDS SUMMARY | 2024-04-18 10:28 | XMS_ITS | Continuity of Care Document ---
Author Organization [facility] Address [address] [place] [address] Phone Care Team Providers Care Insurance Consultant Name Role Phone Gustabo COLLINS, Joseph Unavailable Unavailable Medications Medication Instructions Dosage Effective [...] Copied on Encounter [facility], [address], [place], [place], [id number], [place] tel:[phone] [facility] No Information 201 6 Gustabo Ruiz. [facility], [address] [facility] , [place], [address], [place]. tel:[phone] [facility], [address], [place], [address], [place] tel:[phone] [facility] No Information Apr-2 0- 3 [place]. [facility], [address] [place] [address] [address], [place], [place], [id number], [place]. tel:[phone] Referring Provider: Augustus Stahl, [address], [address]. tel:[phone] Z [facility], [address], [place], [place], [facility], [place] tel:[phone] [facility] No Information Mar-0 8-201 3 Gustabo Ruiz. [facility], [address] [facility] , [place], [address], [place]. tel:[phone] Referring Provider: Augustus Stahl, [address], [facility]. tel:[phone] Office/Outpa tient Visit,Est, Mod Z [facility], [address], [place], [address], [place] tel:[phone] [facility] [place] Sep-0 5 3 Gustabo Ruiz. [facility], [address] [facility] , [place], [address], [place]. tel:[phone] Referring Provider: Augustus Stahl, [address], [facility]. tel:[phone] Office/Outpa tient Visit,Est, Mod Z [facility], [address], [address], [place] tel:[phone] [facility] No Information 3 3 [place]. [facility], [address], [place], [place], [address], [place]. tel:[phone] Referring Provider: Augustus Stahl, [address], [facility]. tel:[phone] Z [facility], [address] [facility] [address], [place], [address], [place] tel:[phone] [facility] No Information 2 Gustabo Ruiz. [facility], [address] [facility] , [place], [address], [place]. tel:[phone] Office/Outpa tient Visit,New, Mod Z [facility], [address] [place], [place] [address], [place], [address], [place] tel:[phone] [facility] No Information 2 [place]. [facility], [address] [place] [address] [address], [place], [place], [id number], [place]. tel:[phone] Referring Provider: Augustus Stahl, [facility] [address] [place], [address]. tel:[phone] Family History Family Member Type Diagnosis Age [...]
--- OUTSIDE RECORDS SUMMARY | 2024-04-18 10:28 | XMS_ITS | Referral Summary ---
[facility] Address [address] [place] [address] Care Team Providers Care Sample Paster Name Role Phone Unavailable Primary Care Provider [...] file Plan of Treatment Not on file Insurance [facility] PPO [place] [id number]
--- OUTSIDE RECORDS SUMMARY | 2024-04-18 10:28 | XMS_ITS ---
Author Organization [facility] Address [address] [place] [address] Care Team Providers Care Instrumentation And Controls Technician Name Role Phone Unavailable Unavailable Unavailable Surgery Details Not on file Complications Check Surgery Details section. Procedure Estimated Blood Loss Check Surgery Details section. Procedure Findings Check Surgery Details section. Procedure Specimens Taken Check Surgery Details section.
--- OUTSIDE RECORDS SUMMARY | 2024-04-18 10:29 | XMS_ITS | CCD ---
Author Organization [facility] Address [address] [place] [address] Care Team Providers Care Table Attendant Name Role Phone Unavailable Primary Care Provider [...] standard drink = 0.6 oz pure alcohol) Comments Unknown Sex and Gender Information Value Date Recorded Sex Assigned at Not on file Legal Sex Female 3:12 PM PST Gender Identity Not on file Sexual Orientation Not on file Plan of Treatment Not on file
--- OUTSIDE RECORDS SUMMARY | 2024-04-18 10:29 | XMS_ITS | Clinical Summary ---
Author Organization [facility] Address [place], [place] [address] Care Team Providers Care Medical Records Analyst Name Role Phone Julio Gonzales MD Primary Care Provider [phone] Allergies No known active allergies Medications Medication [...] 65+ (1 of 1 - PCV) 008 RSV vaccine for adults or pr egnancy (1 - 1-dose 75+ series) 2017 COVID-19 vaccine series ( - 2023- season) 4 Influenza for age 65+ 02/05/2024 Advance Directives * Full Code (Latest Code Status on File) Date Activated Date Inactivated Comments 03/13/2013 6:45 AM 03/13/2013 7:55 PM Care Teams Medical Records Analyst Relationship Specialty Start Date End Date Julio Gonzales MD PCP - General Family Practice 03/09/13
--- OUTSIDE RECORDS SUMMARY | 2024-04-18 10:29 | XMS_ITS | Encounter Summary ---
Author Organization [facility] Address [address] [place] [address] Care Team Providers Care Auto Painter Helper Name Role Phone Unavailable Primary Care Provider Unavailabl e Prior Encounters Date Type Department Care Team Description 06/08/2021 12:00 PM MST Office Visit [facility] [address], [facility] [address] [place] [id number] Keith Guevaar, DDS Plan of Treatment Not on file Procedures Procedure Name Priority Date/Time Associated Diagnosis Comments ADDITIONAL X-RAY Routine 06/08/2021 12:0 0 PM MST SINGLE X-RAY Routine 06/08/2021 12:00 PM MST LIMITED ORAL EVALUATION - PROBLEM FOCUSED Routine 06/08/2021 12:00 PM MST 7 ROOT CANAL Routine 06/08/2021 12:00 AM MST Visit Diagnoses Not on file Insurance [facility] PPO
== END 2024-04-18 10:27 | disposition home or self-care (01) ==
PROVIDERS: PCP Family Medicine; Visit Provider Family Medicine
DX: I10 Essential (primary) hypertension (principal); E03.9 Hypothyroidism, unspecified; E78.5 Hyperlipidemia, unspecified; F41.9 Anxiety disorder, unspecified
CPT/HCPCS: 80061; 84443

== ENCOUNTER 2025-02-18 12:55 | Outpatient (CLI) | payer MEDICARE, SELFPAY ==
--- NOTE | 2025-02-18 13:20 | CRLHL7_ITS ---
For Patients: As a result of the Century Cures Act, medical imaging exams and procedure reports are released immediately into your electronic medical record. You may view this report before your referring provider. If you have questions, please contact your health care provider. INDICATION: BILATERAL SCREENING MAMMOGRAM, ASYMPTOMATIC 84 Y/O FEMALE COMPARISON: 02/25/2022, 04/21/2020, 09/20/2018 TECHNIQUE: Digital mammogram in CC and MLO projections including computer-aided detection (CAD) and tomosynthesis. BREAST COMPOSITION: There are scattered areas of fibroglandular density. FINDINGS: No suspicious findings. ASSESSMENT: BI-RADS 2 Benign RECOMMENDATION: Annual screening mammogram. A lay language report of this examination will be provided to the patient. Dictated by: Niranjan Lanza MD @ 02/19/2025 08:56:27 (Electronically Signed)
== END 2025-02-18 12:56 | disposition home or self-care (01) ==
LOC: MAMMO 12:56
PROVIDERS: PCP Family Medicine; Visit Provider Family Medicine
DX: Z12.31 Encounter for screening mammogram for malignant neoplasm of breast (principal)
CPT/HCPCS: 77063; 77067

== ENCOUNTER 2025-02-27 10:12 | Outpatient (CLI) | payer MEDICARE, SELFPAY ==
[2025-02-27 10:19] VITALS: BP 147/87; PULSE 73; TEMP 37.1; O2SAT 96
--- NOTE | 2025-02-27 11:51 | PM.PROC ---
Procedure Note Time Seen by Provider: 11:00 Date Seen: 02/27/25 Provider Contact Time: 12:00 Date of procedure: 02/27/25 Will [facility] bill your pro fee for this procedure?: Yes Procedure: CRYONEUROLYSIS TREATMENT REPORT DATE OF PROCEDURE: 02/05 REFERRING PROVIDER: Daniele Diaz TREATMENT PROVIDER: Martín Olson PREOPERATIVE DIAGNOSIS: Right knee osteoarthritis POSTOPERATIVE DIAGNOSIS: Right knee osteoarthritis? PROCEDURE: Cryoneurolysis of Multiple Sensory Nerves of the Knee ANESTHESIA: Local INDICATIONS: The patient is a very pleasant 84-year-old female with primary osteoarthritis involving the right knee who presents today for cryoneurolysis of multiple sensory nerves to the knee for severe knee pain.?Patient medical history was reviewed. The risks, benefits, treatment alternatives, and complications were discussed with the patient, including but not limited to bleeding, infection, nerve or tissue damage.?Informed consent was obtained. ? PRE-TREATMENT MOTOR ASSESSMENT/PAIN SCORE: Patient was able to demonstrate intact gross motor function with plantarflexion, dorsiflexion, adduction, abduction, hip flexion, and extension of the lower extremity.?Pre-treatment pain score of 3 out of 10 in the right knee. DESCRIPTION OF PROCEDURE: After obtaining informed consent, the patient was brought back to the treatment room and positioned supine on the table.?The right lower extremity was prepped with Chlorhexadine.?We began the procedure by performing our procedural pause.?Once this was completed and verified to be accurate, I began the procedure by identifying the nerves with the use of bedside ultrasound.?After the nerves were identified, the skin was marked and, using 1% lidocaine plain, the area of the nerves were anesthetized. ? After the anesthetic was administered, the Smart Tip 2190 cryoneurolysis needle was inserted into the treatment sites using ultrasound guidance.?Treatment was then initiated on the right lower extremity with the following nerves treated: Superior, superior medial, superior lateral, inferior medial genicular nerves. At the termination of the treatment, the cryoneurolysis needle was removed with the patient's skin cleansed and Band-Aids and Nilson wrap. Patient tolerated the procedure without any incident or concern.? Patient was then instructed to stand, mobilize the joint, and was examined to ensure gross motor skills were intact. COMPLICATIONS: None POST-TREATMENT PAIN SCORE: 0 out of 10. Right knee DISPOSITION: Discharge instructions were given to the patient with education on the post-procedure expectations. Patient was instructed to call the Ortho clinic with any post-procedure concerns or questions.
[2025-02-27 11:59] VITALS: BP 147/96; PULSE 72; RESP 16; O2SAT 97
== END 2025-02-27 12:00 | disposition home or self-care (01) ==
LOC: OP CLINIC 10:13
PROVIDERS: PCP Family Medicine; Visit Provider Nurse Anesthetist, Certified Registered
DX: M17.11 Unilateral primary osteoarthritis, right knee (principal)
CPT/HCPCS: 64640; 76942; C9809

== ENCOUNTER 2025-03-04 14:33 | Outpatient (CLI) | payer MEDICARE, SELFPAY | END 2025-03-04 14:34 | disposition home or self-care (01) | PROVIDERS: PCP Family Medicine; Visit Provider Family Medicine | DX: E78.00 Pure hypercholesterolemia, unspecified (principal); E03.9 Hypothyroidism, unspecified | CPT/HCPCS: 80061; 84443 ==

== ENCOUNTER 2025-03-11 10:04 | Day surgery (SDC) | payer MEDICARE, SELFPAY ==
[2025-03-11] VITALS (23 sets, daily range): BP systolic 102–161; BP diastolic 68–109; PULSE 54–90; RESP 16–20; TEMP 35.9–37.1; O2SAT 90–96; BMI 39.6
[2025-03-11] MEDS: LACTATED RINGERS 1000 ML 1,000 ML 100 ML IV ×2 (10:10→13:46)
[2025-03-11] MEDS: ACETAMINOPHEN 500 MG TABLET 1000 MG PO ×3 (10:20→23:41)
[2025-03-11] MEDS: OXYCODONE (CR) 10 MG TAB.ER.12H PO (10:20)
[2025-03-11] MEDS: SODIUM CHLORIDE 0.9 % (FLUSH) 10 ML SYRINGE IVF (10:34)
--- NOTE | 2025-03-11 10:47 | W.PM.H&PU ---
History & Physical Update History & Physical Update H&P Reviewed and patient assessed: No changes noted
--- NOTE | 2025-03-11 10:49 | CRLHL7_ITS ---
For Patients: As a result of the Cures Act, medical imaging exams and procedure reports are released immediately into your electronic medical record. You may view this report before your referring provider. If you have questions, please contact your health care provider. Indication: Right knee arthroplasty Technique: Right knee 2 view Comparison: Right radiograph 02/19/2025. Findings: Hardware from a right knee arthroplasty is in satisfactory position. Bone alignment is normal. No sign of acute fracture. There are postoperative changes in the soft tissues. Dictated by Jori Gonzales MD @ 03/11/2025 8:15:20 PM (Electronically Signed)
[2025-03-11] MEDS: MIDAZOLAM HCL 1 MG/ML inj IVP (11:35)
--- NOTE | 2025-03-11 11:40 | SUR.PREOP ---
TIME?OUT:?1134 PT/RN/MDA?VERIFICATION?OF?SURGICAL?SITE right knee,?PROCEDURE,?AND?CONSENT OBTAINED?PRIOR?TO?INVASIVE?PROCEDURE.
--- NOTE | 2025-03-11 12:07 | W.PM.NB ---
Nerve Block Nerve Block Time Seen by Provider: 11:40 Date Seen: 03/11/25 Type of block requested by surgeon for post-operative analgesia: geniculars Side: right Time out performed: Yes Verification of patient name: Yes Verification of date of : Yes Site marking: site marked Name of person performing procedure: Wesley Continuous monitoring Was continuous monitoring of O2 sat, B/P, monitor car operator, recorded every 15 minutes?: Yes Procedure Checklist: sterile prep, needles and gloves Ultrasound guided. Images saved: Yes Medications given in 5ml increments after negative aspiration: Marcaine %: 0.25 mL: 9 Needle gauge: 25 Patient tolerated procedure well: Yes Block Charges Block Charge (with Pro Fee): Genicular Nerve Block
--- NOTE | 2025-03-11 12:07 | W.PM.NB ---
Nerve Block Nerve Block Time Seen by Provider: 11:40 Date Seen: 03/11/25 Type of block requested by surgeon for post-operative analgesia: adductor canal Side: right Time out performed: Yes Verification of patient name: Yes Verification of date of : Yes Site marking: site marked Name of person performing procedure: Wesley Continuous monitoring Was continuous monitoring of O2 sat, B/P, bridge toll collector, recorded every 15 minutes?: Yes Procedure Checklist: sterile prep, needles and gloves Ultrasound guided. Images saved: Yes Medications given in 5ml increments after negative aspiration: Marcaine %: 0.25 mL: 15 Needle gauge: 20 Precedex (mcg): 25 Patient tolerated procedure well: Yes Block Charges Block Charge (with Pro Fee): Femoral Nerve Use of Ultrasound Machine for Block: Yes- US Guidance/pain block
--- NOTE | 2025-03-11 12:08 | P.ANES_ITS ---
Anesthesia Charges Start Date/Time Anesthesia Start Date: 03/11/25 Anesthesia Start Time: 11:53 Stop Date/Time Anesthesia Stop Date: 03/11/25 Anesthesia Stop Time: 14:01 Summary Extremes of Age - Over 70 or under 1: MDA Coding CPT Codes CPT Codes: ANESTH KNEE ARTHROPLASTY - 79236 ([id number]) P3 - PATIENT W/SEVERE SYS DISEASE, QK - SCHOOL BUS AIDE 2-4 CNCRNT ANES PROC, QX - LAMINATOR PRINTED CIRCUIT BOARDS SVC W/ MD MED DIRECTION Additional Codes: Summary - Extremes of Age - Over 70 or under 1: MDA ([id number])
--- NOTE | 2025-03-11 12:08 | W.ANESCHARGE ---
Anesthesia Charges Start Date/Time Anesthesia Start Date: 03/11/25 Anesthesia Start Time: 11:53 Stop Date/Time Anesthesia Stop Date: 03/11/25 Anesthesia Stop Time: 14:01 Summary Extremes of Age - Over 70 or under 1: MDA Coding CPT Codes CPT Codes: ANESTH KNEE ARTHROPLASTY - 91069 ([id number]) P3 - PATIENT W/SEVERE SYS DISEASE, QK - SALON DESIGNER 2-4 CNCRNT ANES PROC, QX - TRUCK CATERER SVC W/ MD MED DIRECTION Additional Codes: Summary - Extremes of Age - Over 70 or under 1: MDA ([id number])
[2025-03-11] MEDS: TRANEXAMIC ACID 100 MG/ML INJ 1000 MG IV (12:10)
--- NOTE | 2025-03-11 13:31 | PM.ORPRC ---
Procedure Note Date of procedure: 03/11/25 Procedure: PREOPERATIVE DIAGNOSIS: 1. Right knee osteoarthritis, primary, severe POSTOPERATIVE DIAGNOSIS: 1. Right knee osteoarthritis, primary, severe PROCEDURE: 1. Right total knee arthroplasty - subvastus; cemented, limited tourniquet SURGEON: Daniele Diaz MD. FIELD SERVICE COORDINATOR: AGUS Tripathi - Of note, a skilled delinquent tax collection assistant was critical for this case to aid in patient positioning, tissue retraction, limb manipulation/positioning, and closure. ANESTHESIA: Spinal anesthetic IMPLANTS: DePuy J&J all cemented TKA - Attune PS femur size 5 narrow Size 4 tibia 5 mm poly spacer 35mm patella TOURNIQUET: 17 minutes at 250 torr EBL: 50 ml COMPLICATIONS: None evident INDICATIONS: The patient is a pleasant 84-year-old female who has experienced severe right knee pain and difficulty bearing weight. Workup included x-rays which revealed severe osteoarthrosis in the knee. Given the deformity, the dysfunction, and the pain, as well as the failure of nonoperative management, recommendation was made for surgery. FINDINGS: Full-thickness chondral loss diffusely throughout the lateral compartment as well as patellofemoral compartment. To lesser degree medial compartment. She had a slight flexion contracture and rolled into valgus like a typical hypoplastic lateral femoral condyle. Large effusion upon entering the joint. Severe degenerative meniscus pathology laterally, to a lesser degree medially. DESCRIPTION OF PROCEDURE: Following a thorough discussion of risks, benefits, and alternatives consent was obtained and the right knee was marked. The patient was brought to the operating room and placed supine on the operating table. Induction of anesthesia was undertaken. 2 g IV Ancef and 1 g tranexamic acid was administered within 1 hr of incision preoperatively. Proper time-out was performed identifying proper patient, site, procedure. The operative extremity was prepped and draped in the appropriate sterile fashion using ChloraPrep after the patient was positioned supine with all bony prominences well padded. A longitudinal, anterior, midline skin incision was made starting approximately 3cm proximal to the superior pole of the patella and advanced distal to the tibial tubercle. A subvastus approach was utilized. A medial subperiosteal sleeve was created with knife, massey elevator and curved osteotome. The retropatellar fatpad was resected and the synovium in the suprapatellar pouch excised to visualize the anterior femoral cortex. Femoral preparation was performed via an intramedullary guide. Step drill allowed access into the femoral canal. The distal cutting guide was placed with 5? of valgus and 12 mm cut on the distal femur due to a 5-7 degree flexion contracture. Femur was sized using a posterior referencing guide in 5? of external rotation after cross referencing with trans-epicondylar axis and [place]'s line. This found have a best fit with the sizing noted above. The 4 in 1 cutting block was then placed, and the distal femur shaped accordingly. The box cut was then created and the trial implant inserted to confirm appropriate fit. We turned our attention to the proximal tibia. Extramedullary guide was utilized for cutting with the goal of being 90 degree cut from the mechanical axis of the tibia in the varus/valgus plane utilizing tibial crest as the primary alignment. Initially a 4 mm resection was performed from the medial tibial plateau. An additional 2mm did require resection to achieve appropriate balance. Ultimately, balancing was achieved in both flexion and extension in both varus and valgus. The knee was able to achieve full extension as well comfortably. The patella was initially measured and found have a thickness of 21 mm. It was resected back to approximately 14 mm. It was sized to be a best fit with as noted above. This was drilled, trial placed. All trials were placed and found to have an excellent stability and balance. At this stage, trial implants were removed, the knee was thoroughly irrigated with normal saline, and the cement was mixed. After irrigation, the knee was thoroughly dried, and cement placed, with the real tibial and femoral implants placed along with the patella. Trial poly spacer was placed and confirmed to have excellent range of motion and full extension, and the real poly spacer opened and inserted. All extra cement was removed, and a 3 min Betadine soak performed. Finally, a final irrigation round with normal saline was performed. Closure performed with 0 Vicryl and #0 Stratafix for the quad tendon/retinaculum. 2-0 Vicryl for the subcutaneous and 4-0 Stratafix for subcuticular closure. Dressings were applied and the patient was awoken from anesthesia after the tourniquet deflated and transferred the PACU in stable condition. A skilled delinquent tax collection assistant was critical for this case to aid in patient positioning, tissue retraction, bone exposure, limb manipulation/positioning, patient safety, and closure. PLAN: 1. Weight bear as tolerated operative extremity. 2. 23 hr perioperative antibiotics. 3. Ice. 4. PT/OT consults for ambulation assistance/mobility education. 5. Social work consult for discharge planning. 6. DVT prophylaxis with at SCDs and aspirin twice daily.
--- NOTE | 2025-03-11 13:59 | P.ANES_ITS ---
Anesthesia Charges Start Date/Time Anesthesia Start Date: 03/11/25 Anesthesia Start Time: 11:53 Stop Date/Time Anesthesia Stop Date: 03/11/25 Anesthesia Stop Time: 14:01 Summary Extremes of Age - Over 70 or under 1: GRADE SETTER Coding CPT Codes CPT Codes: ANESTH KNEE ARTHROPLASTY - 43265 ([id number]) P3 - PATIENT W/SEVERE SYS DISEASE, QK - PROMOTIONS REPRESENTATIVE 2-4 CNCRNT ANES PROC, QX - GRADE SETTER SVC W/ MD MED DIRECTION Additional Codes: Summary - Extremes of Age - Over 70 or under 1: GRADE SETTER ([id number])
--- NOTE | 2025-03-11 13:59 | W.ANESCHARGE ---
Anesthesia Charges Start Date/Time Anesthesia Start Date: 03/11/25 Anesthesia Start Time: 11:53 Stop Date/Time Anesthesia Stop Date: 03/11/25 Anesthesia Stop Time: 14:01 Summary Extremes of Age - Over 70 or under 1: LOSS PREVENTION OFFICER Coding CPT Codes CPT Codes: ANESTH KNEE ARTHROPLASTY - 54821 ([id number]) P3 - PATIENT W/SEVERE SYS DISEASE, QK - TRACK HELPER 2-4 CNCRNT ANES PROC, QX - LOSS PREVENTION OFFICER SVC W/ MD MED DIRECTION Additional Codes: Summary - Extremes of Age - Over 70 or under 1: LOSS PREVENTION OFFICER ([id number])
--- NOTE | 2025-03-11 14:27 | PM.IMCN1 ---
Date of Consult Patient: [facility] Patient Consult date: 03/11/25 Requesting Physician: Orthopedics Primary Care Provider: Julio Gonzales MD Consult Narrative Reason for consult: Medical management Narrative: Jeri Rojas is a 84 year old female past medical history significant hypertension, hyperlipidemia, hypothyroidism, anxiety is POD#0 status post right total knee arthroplasty with Dr. Bains. Postoperatively, patient is seen with at bedside, she reports pain is just increasing as block wears off. Denies headache or chest pain. No nausea, currently tolerating ice chips for now. There have been no perioperative complications or nursing concerns reported. Estimated total blood loss documented as 50ml. Updated and reviewed the active medical problems, past medical history, past surgical history, social history, allergies and medications in our electronic EMR. Review of Systems Narrative: REVIEW OF SYSTEMS: Complete review of systems performed and negative unless otherwise stated in HPI or below. 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) ?Z96.652 - Presence of left artificial knee joint (ICD-10) History of vein stripping ?Z98.890 - Other specified postprocedural states (ICD-10) Status post tubal ligation (02/11/09) ?Z98.51 - Tubal ligation status (ICD-10) Status post lumbar spine operative procedure for decompression of spinal cord ?Z98.890 - Other specified postprocedural states (ICD-10) Status post left foot surgery (02/11/09) ?Z98.890 - Other specified postprocedural states (ICD-10) Status post cataract extraction ?Z98.49 - Cataract extraction status, unspecified eye (ICD-10) Status post bunionectomy (02/11/09) ?Z98.890 - Other specified postprocedural states (ICD-10) 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 She has 2 steps to get into the house but then lives on 1 level. They have installed hand rails on both sides to get into the house. She does not smoke. She rarely drinks alcohol. What is your current living situation?: I presently have a place to live In the past 12 months, utilities in danger of being shut off: no In past 12 months, lack of transportation kept you from medical appts, meetings, work, or getting things needed for daily living: no In the past 12 mos, have been you worried that your food would run out before you had money to buy more?: never true In the past 12 mos, the food you bought just didn't last and you didn't have money to buy more?: never true Smoking Status: Former smoker What tobacco products do you use: cigarettes Smoking packs per day: 0.5 Smoking cigarettes per day: 10.0 Years smoked: 9 Smoking pack-years: 4.50 Smoking quit date/years: >15 years ago Do you use any of these nicotine containing products: None How often do you have a drink containing alcohol: monthly or less Alcohol type: wine How many standard drinks containing alcohol do you have on a typical day: 1 or 2 How often do you have six or more drinks on one occasion: Never AUDIT-C Alcohol total score: 1 Non-prescribed substance use: denies use Caffeine: Yes How often does anyone, including family, friends and others, physically hurt you: never How often does anyone, including family, friends and others, insult or talk down to you: never How often does anyone, including family, friends and others, threaten you with harm: never How often does anyone, including family, friends and others, scream or curse at you: never Meds Home Medications and Allergies Home Medications ?Medication ?Instructions ?Recorded ?Confirmed ?Type multivitamin 1 tab PO HS 04/14/22 03/11/25 History acetaminophen 500 mg capsule 500 - 1,000 mg (1 - 2 x 500 mg) PO 01/24/23 03/11/25 Rx Q6H PRN pain #100 caps cholecalciferol (vitamin D3) 25 25 mcg PO DAILY 04/18/24 03/11/25 History mcg (1,000 unit) tablet citalopram 20 mg tablet 20 mg PO HS #90 tabs 04/18/24 03/11/25 Rx mirabegron 50 mg tablet,extended 50 mg PO DAILY #90 tabs 04/18/24 03/11/25 Rx release 24 hr (Myrbetriq) amlodipine 5 mg tablet 5 mg PO HS #90 tabs 01/29/25 03/11/25 Rx levothyroxine 25 mcg tablet 25 mcg PO DAILY #90 tabs 01/29/25 03/11/25 Rx pravastatin 40 mg tablet 40 mg PO DAILY #90 tabs 01/29/25 03/11/25 Rx aspirin 81 mg tablet,delayed 81 mg PO BID #60 tabs 03/11/25 Rx release oxycodone 5 mg tablet 2.5 - 5 mg (0.5 - 1 x 5 mg) PO 03/11/25 Rx Q4-6H PRN pain #42 tabs sennosides 8.6 mg-docusate sodium 1 - 4 tab-cap (1 - 4 x 8.6-50 mg) 03/11/25 Rx 50 mg tablet (Senna-S) PO BID PRN constipation #60 tabs Allergies Allergy/AdvReac Type Severity Reaction Status Date / Time lisinopril Allergy Severe Swelling Verified 03/11/25 10:15 of Lip/Tongue/Throat Exam Narrative: Exam Narrative: PHYSICAL EXAM General: Pleasant, conversant, NAD HEENT: Normocephalic, atraumatic, sclera white, EOMI, oral mucosa moist Cardiovascular: RRR, S1S2. No pitting edema Pulmonary: CTA bilaterally without rhonchi, rales, expiratory wheezes. No dyspnea Neurological: Alert, answering questions appropriately, cranial nerves intact, no focal findings Extremities: No gross joint deformity or swelling. Postoperative dressing in place, dry. Neurovascularly intact Skin: Warm, dry. Const: Vital Signs, click to edit/add: Vital Signs - 24 hr 03/11/25 10:32 03/11/25 11:35 03/11/25 11:40 Temperature 97.6 F Pulse Rate 81 66 62 Respiratory Rate 16 16 16 Blood Pressure 127/91 H 133/79 114/88 Pulse Oximetry 94 94 95 Oxygen Delivery Me thod Room Air Nasal Cannula Nasal Cannula Oxygen Flow Rate 3 3 03/11/25 13:57 03/11/25 14:00 03/11/25 14:05 Temperature 98.7 F Pulse Rate 63 62 66 Respiratory Rate 16 16 16 Blood Pressure 102/68 110/69 119/77 Pulse Oximetry 93 92 93 Oxygen Delivery Me thod Room Air Oxygen Flow Rate 03/11/25 14:10 03/11/25 14:15 03/11/25 14:20 Temperature Pulse Rate 64 64 60 Respiratory Rate 16 16 16 Blood Pressure 133/85 138/85 141/87 H Pulse Oximetry 93 94 92 Oxygen Delivery Me thod Oxygen Flow Rate 03/11/25 14:25 Temperature 98.4 F Pulse Rate 61 Respiratory Rate 16 Blood Pressure 134/87 Pulse Oximetry 93 Oxygen Delivery Me thod Room Air Oxygen Flow Rate Assessment and Plan Assessment and plan (1) Osteoarthritis of right knee: Problem comment: -POD#0 s/p right total knee arthroplasty, Dr. Bains -perioperative management including pain management and anticoagulation per Orthopedic surgery -encourage postoperative pulmonary hygiene -PT OT consults -plan to discharge home with Spouse tomorrow Status: Chronic (2) Hypertension: Problem comment: -resume antihypertensives following discharge, tomorrow morning if necessary, monitoring blood pressures postoperatively Status: Acute (3) Hyperlipidemia: Problem comment: -resume statin following discharge Status: Acute (4) Hypothyroid: Problem comment: -some levothyroxine following discharge Status: Acute Plan May resume home medications upon discharge. Consider antihypertensives in the morning if necessary. Hospital medicine team will sign off. Please contact our service with any questions or concerns. Total Time Spent Total Time Spent: Today I spent 75 minutes seeing the patient, reviewing Expanse and EPIC notes/diagnostics, discussing the care plan with our care time that includes social work, PT/OT, pharmacy, RT, chcf and documenting my impressions and plan in the medical record.
[2025-03-11] MEDS: CEFAZOLIN 2 GM in 0.9 % SODIUM CHLORIDE Mini-bag 100 ML IVPB (18:09)
--- NOTE | 2025-03-11 19:02 | PC.NURSE ---
End of Shift Note 260? ? Patient has been very pleasant and cooperative throughout shift. VSS. Afebrile. Saline locked. Voiding and drinking appropriately. Bruise (aprox 2.5?) noted on lateral side of surgical site. No significant edema noted. Ice pack in place. Surgical dressing dry and intact. A&Ox4. Walks SBA/ Assist 1 with walker and gait belt. Uses call light appropriately. Call light within reach.?
[2025-03-11] MEDS: SENNOSIDES 1 TAB TABLET 2 TAB PO (20:55)
[2025-03-11] MEDS: ASPIRIN 81 MG TABLET EC PO (20:55)
[2025-03-11] MEDS: AMLODIPINE 5 MG TABLET PO (20:55)
[2025-03-12 01:47] VITALS: BP 119/77; PULSE 84; RESP 18; TEMP 36.6; O2SAT 92
[2025-03-12] MEDS: CEFAZOLIN 2 GM in 0.9 % SODIUM CHLORIDE Mini-bag 100 ML IVPB ×2 (01:50→10:12)
[2025-03-12] MEDS: SODIUM CHLORIDE 0.9 % (FLUSH) 10 ML SYRINGE IVF (01:50)
--- NOTE | 2025-03-12 04:38 | PC.NURSE ---
Shift note: Patient is doing well ambulating with A1, walker and GB. Patient spent most of her night in the recliner. She said she feels more comfortable in the recliner than the bed. Tolerated regular diet well. Alert and oriented. Vitally stable. Dressing intact, clean and dry. Ice pack applied. Pain level has been rated at 3 and required no pain medication.
[2025-03-12] MEDS: ACETAMINOPHEN 500 MG TABLET 1000 MG PO (06:34)
[2025-03-12 07:51] VITALS: BP 116/90; PULSE 79; RESP 18; TEMP 36.8; O2SAT 95
[2025-03-12 07:54] VITALS: O2SAT 95
[2025-03-12 07:55] VITALS: RESP 18; O2SAT 95
[2025-03-12] MEDS: ASPIRIN 81 MG TABLET EC PO (09:19)
[2025-03-12] MEDS: SENNOSIDES 1 TAB TABLET 2 TAB PO (09:19)
--- NOTE | 2025-03-12 09:22 | P.ORPN_ITS ---
Subjective Subjective Date Seen: 03/12/25 Principal diagnosis: Status postop day 1 Right total knee arthroplasty Interval history: Patient reports doing well. No acute events over night, aside from right buttock pain without radiation. Pain managed with scheduled and PRN medications, ice. Oxycodone is helping the buttock pain. DVT prophylaxis: 81 mg aspirin by mouth twice daily, SCDs, walking. Denies fevers, chills, aches, N/V, CP, SOB/PADILLA, or lightheadedness. Ortho Exam Narrative Exam Narrative: -Patient appears comfortable; no apparent acute distress -Alert and oriented times 3 -Operative knee mildly swollen; soft tissues supple; no ecchymosis; no erythematous streaking Warmth appropriate -Surgical dressing clean, dry, intact; no drainage -Bilateral calfs soft; no significant swelling, edema, tenderness, erythema, discoloration, warmth, or palpable cords -2+ DP/PT pulses, intact dermatomes and myotomes distally (5/5 strength) -Mild pain to palpation right buttock, quite posterior. No swelling or abscess concern. No erythema. Soft. Const Vital Signs, click to edit/add: Vital Signs - 24 hr 03/11/25 10:32 03/11/25 11:35 03/11/25 11:40 Temperature 97.6 F Pulse Rate 81 66 62 Pulse Rate [Pulse Oximeter] Respiratory Rate 16 16 16 Blood Pressure 127/91 H 133/79 114/88 Blood Pressure [Left Arm] Pulse Oximetry 94 94 95 Oxygen Delivery Method Room Air Nasal Cannula Nasal Cannula Oxygen Flow Rate 3 3 03/11/25 13:57 03/11/25 14:00 03/11/25 14:05 Temperature 98.7 F Pulse Rate 63 62 66 Pulse Rate [Pulse Oximeter] Respiratory Rate 16 16 16 Blood Pressure 102/68 110/69 119/77 Blood Pressure [Left Arm] Pulse Oximetry 93 92 93 Oxygen Delivery Method Room Air Oxygen Flow Rate 03/11/25 14:10 03/11/25 14:15 03/11/25 14:20 Temperature Pulse Rate 64 64 60 Pulse Rate [Pulse Oximeter] Respiratory Rate 16 16 16 Blood Pressure 133/85 138/85 141/87 H Blood Pressure [Left Arm] Pulse Oximetry 93 94 92 Oxygen Delivery Method Oxygen Flow Rate 03/11/25 14:25 03/11/25 14:35 03/11/25 14:45 Temperature 98.4 F 96.8 F L 96.8 F L Pulse Rate 61 Pulse Rate [Pulse Oximeter] 63 64 Respiratory Rate 16 18 18 Blood Pressure 134/87 Blood Pressure [Left Arm] 145/88 H 151/90 H Pulse Oximetry 93 94 93 Oxygen Delivery Method Room Air Room Air Room Air Oxygen Flow Rate 03/11/25 15:00 03/11/25 15:00 03/11/25 15:00 Temperature 96.7 F L Pulse Rate Pulse Rate [Pulse Oximeter] 66 Respiratory Rate 18 16 Blood Pressure Blood Pressure [Left Arm] 153/100 H Pulse Oximetry 94 94 91 Oxygen Delivery Method Room Air Room Air Oxygen Flow Rate 03/11/25 15:15 03/11/25 15:30 03/11/25 16:00 Temperature 97.1 F L 97.1 F L 97.3 F L Pulse Rate Pulse Rate [Pulse Oximeter] 67 68 75 Respiratory Rate 18 18 18 Blood Pressure Blood Pressure [Left Arm] 149/90 H 160/97 H 133/109 H Pulse Oximetry 96 94 90 Oxygen Delivery Method Room Air Room Air Room Air Oxygen Flow Rate 03/11/25 16:30 03/11/25 17:30 03/11/25 18:39 Temperature 97.9 F 97.9 F Pulse Rate Pulse Rate [Pulse Oximeter] 79 86 54 L Respiratory Rate 18 18 20 Blood Pressure Blood Pressure [Left Arm] 161/101 H 130/93 H 147/102 H Pulse Oximetry 93 96 96 Oxygen Delivery Method Room Air Room Air Room Air Oxygen Flow Rate 03/11/25 19:36 03/11/25 20:39 03/11/25 23:00 Temperature 97.9 F 97.7 F Pulse Rate Pulse Rate [Pulse Oximeter] 90 86 Respiratory Rate 20 20 Blood Pressure Blood Pressure [Left Arm] 128/76 137/86 Pulse Oximetry 93 94 92 Oxygen Delivery Method Room Air Room Air Oxygen Flow Rate 03/11/25 23:00 03/11/25 23:00 03/11/25 23:39 Temperature 97.5 F L Pulse Rate Pulse Rate [Pulse Oximeter] 88 88 Respiratory Rate 18 18 18 Blood Pressure Blood Pressure [Left Arm] 113/82 Pulse Oximetry 92 92 Oxygen Delivery Method Room Air Room Air Oxygen Flow Rate 03/12/25 01:47 03/12/25 07:51 03/12/25 07:54 Temperature 98 F 98.2 F Pulse Rate Pulse Rate [Pulse Oximeter] 84 79 Respiratory Rate 18 18 Blood Pressure Blood Pressure [Left Arm] 119/77 116/90 H Pulse Oximetry 92 95 95 Oxygen Delivery Method Room Air Room Air Oxygen Flow Rate 03/12/25 07:55 Temperature Pulse Rate Pulse Rate [Pulse Oximeter] Respiratory Rate 18 Blood Pressure Blood Pressure [Left Arm] Pulse Oximetry 95 Oxygen Delivery Method Room Air Oxygen Flow Rate Assessment and Plan Assessment and plan (1) Osteoarthritis of right knee: Problem details: -POD#1 s/p right total knee arthroplasty, Dr. Diaz -perioperative management including pain management and anticoagulation per Orthopedic surgery -encourage postoperative pulmonary hygiene -PT OT consults -plan to discharge home with spouse tomorrow Status: Chronic (2) Hypertension: Problem details: -resume antihypertensives following discharge, tomorrow morning if necessary, monitoring blood pressures postoperatively Status: Acute (3) Hyperlipidemia: Problem details: -resume statin following discharge Status: Acute (4) Hypothyroid: Problem details: -some levothyroxine following discharge Status: Acute Plan - Complete 23 hour perioperative antibiotics. - PT/OT consult for education and assistance. - Social work consult for discharge planning - Prescribed analgesics as needed - DVT prophylaxis: 81 mg aspirin by mouth twice daily, walking, and SCDs - Anticipation is for discharge to home with spouse today 03/12/25 if the patient remains medically stable, pain is controlled, and they are safe with mobilizatio n.
[2025-03-12 10:34] VITALS: BP 120/81; PULSE 73; RESP 18; TEMP 36.9; O2SAT 95
--- NOTE | 2025-03-12 11:45 | PC.NURSE ---
Pt discharged @ 1140 via wheelchair, accompanied by . Going back to home. IV removed. Discharge instructions understood per Pt reporting and signed. Belongings signed. Final room check complete. RTKA, CMS intact. Pain controlled.
--- NOTE | 2025-03-12 13:09 | PC.SOCIAL ---
Youth Officer Consult: SW met with patient and discussed resources/supports needed for home. Patient states that she has everything prepared and will have the support from her . Patient expressed no concerns. SW to assist if needs/concerns arise.
== END 2025-03-12 11:40 | disposition home or self-care (01) ==
LOC: OR 10:05 → MEDSURG 10:06
PROVIDERS: PCP Family Medicine; Visit Provider Orthopaedic Surgery Sports Medicine
PROC: (CPT 27447; principal; 2025-03-11 12:30)
DX: M17.11 Unilateral primary osteoarthritis, right knee (principal); G89.18 Other acute postprocedural pain; I10 Essential (primary) hypertension; F41.9 Anxiety disorder, unspecified; E03.9 Hypothyroidism, unspecified; E78.5 Hyperlipidemia, unspecified; Z96.652 Presence of left artificial knee joint; Z96.612 Presence of left artificial shoulder joint; Z96.642 Presence of left artificial hip joint; Z87.891 Personal history of nicotine dependence
CPT/HCPCS: 27447; 01402; 64447; 64454; 73560; 76942; 97110; 97116; 97161; 97165; 97535; 99100; A9270; C1776; J0665; J0690; J1100; J1171; J2250; J2371; J2405; J2704; J3010; J7120